=== PATIENT | female | born 1945 | race African-American/Black ===

== ENCOUNTER 2018-04-25 23:37 | Observation (INO) | payer OTHER ==
[2018-04-26 00:49] VITALS: BMI 22.2
--- NOTE | 2018-04-26 00:54 | PDOC ---
Attending Attestation - Resident Resident Name: Tawny Bateman - ED Attending Attestation I have performed the following: I have examined & evaluated the patient, The case was reviewed & discussed with the resident, I agree w/resident's findings & plan, Exceptions are as noted - HPI HPI: 04/26/18 00:58 Ms silverio is a 72 yo F with a h/o CAD s/p CT and CABG, CVA with no resulting weakness Pt presents to the ER for evaluation of noticable weakness Pt reports that she was in her usual state of health today, was shopping and while in [employer], she felt lightheaded and weak (approximately 6pm) She leaned on her walker and ultimately slid to the ground No LOC, No Amnesia She refused to go to the hospital despite staff requesting that she be taken by ambulance She called a friend to pick her up While at home she was noted to be walking different She appeared more weak to her family members They insisted that she come in to the ER Pt denies chest pain, shortness of breath (she never had this with her CT) Currently, pt feels well 04/26/18 01:23 - Physicial Exam PE: 04/26/18 01:29 GENERAL: The patient is in no acute distress. HEAD: Normal with no signs of trauma. EYES: PERRLA, EOMI ENT: Moist mucous membranes. NECK: Normal range of motion, supple LUNGS: Breath sounds equal, clear to auscultation bilaterally. HEART:Regular rate and rhythm, normal S1 and S2 ABDOMEN: Soft, nontender, normoactive bowel sounds. EXTREMITIES: Normal range of motion, no edema. NEUROLOGICAL: Cranial nerves II through XII grossly intact. Normal speech. No focal neurological deficits. SKIN: Hypertrophic midline sternal scar - Medical Decision Making 04/26/18 01:30 72 yo F presenting to the ER with a complaint of light headedness, presyncope Pt has h/o CVA and CT Will do: Labs EKG CT head No indication for TPA given presentation Will admit 04/26/18 00:53 EKG: NSR rate of 83 bpm, LAD, no st elevation or depression, (+) LVH, t wave inversion v3 - v6, II, III, aVF 04/30/18 15:41 Laboratory Tests 04/26/18 04/26/18 04/26/18 00:49 00:49 00:49 WBC 9.4 Hgb 12.8 Hct 38.0 Plt Count 152 INR 1.10 H BUN 27 H Creatinine 1.8 H Alkaline Phosphatase 105 Troponin I 04/26/18 00:49 WBC Hgb Hct Plt Count INR BUN Creatinine Alkaline Phosphatase Troponin I < 0.02
[2018-04-26 01:10] LABS: BASO % 0.1 % (0-2.0); EOS % 0.4 % (0-4.5); HEMOGLOBIN 12.8 GM/dL (10.7-15.3); LYMPH % 12.8 % (8-40); MCH 29.7 pg (25.7-33.7); MCHC 33.7 g/dl (32.0-36.0); MEAN PLT VOLUME 9.3 fl (7.5-11.1); NEUT % 80.7 % (42.8-82.8); PLATELET COUNT 152 K/MM3 (134-434); RBC 4.31 M/mm3 (3.60-5.2); RDW 15.1 % (11.6-15.6); WHITE BLOOD COUNT 9.4 K/mm3 (4.0-10.0)
[2018-04-26] MEDS ORDERED: SODIUM CHLORIDE 500 ML IV STA (01:19)
[2018-04-26 01:23] LABS: INR 1.1 (0.83-1.09)
[2018-04-26 01:25] LABS: ACTIVATED PTT 26.2 SECONDS (25.2-36.5)
[2018-04-26 01:38] LABS: ALBUMIN 3.6 g/dl (3.4-5.0); ALK PHOS 105 U/L (45-117); ANION GAP 8 MMOL/L (8-16); BILIRUBIN,TOTAL 0.7 mg/dL (0.2-1); BLOOD UREA NITROGEN 27 mg/dL (7-18); CHLORIDE 102 mmol/L (98-107); CO2 27 mmol/L (21-32); CREATININE 1.8 mg/dL (0.55-1.3); GLUCOSE,RANDOM 165 mg/dL (74-106); MAGNESIUM 2.5 mg/dL (1.8-2.4); POTASSIUM 4.4 mmol/L (3.5-5.1); SGOT/AST 27 U/L (15-37); SGPT/ALT 23 U/L (13-61); SODIUM 137 mmol/L (136-145); TOT PROT 7.5 g/dl (6.4-8.2)
[2018-04-26] MEDS ORDERED: ASPIRIN 325 MG ENTERIC COATED TABLET (FP) PO ONE (01:53)
--- NOTE | 2018-04-26 01:58 | PDOC ---
History of Present Illness - General Chief Complaint: Weakness Stated Complaint: NUMBNESS ON THE LFT SIDE Time Seen by Provider: 04/26/18 00:17 History Source: Patient, Family (siblings) Exam Limitations: No Limitations - History of Present Illness Initial Comments: 04/26/18 01:55 Pt is a 72yo F with PMH of HTN, HLD, CVA, NE s/p pacemaker/AICD, CKD? presenting to ED with family for L sided weakness. Siblings state that pt had not been walking normally today and was leaning toward the left side with left arm bent and L leg dragging. Pt states that she has been feeling lightheaded for about one week and when she was sitting at a store today, she slid off her walker. She denies hitting her head or losing consciousness. She is denying dizziness, numbness/tingling, weakness. Endorses unsteady gait and lightheadedness. Denies chest pain, SOB, abdominal pain, n/v/d, urinary symptoms , headache, changes in vision, slurred speech. Per family, pt is at baseline. Does not have a neurologist, is not on AC. PMD: Axel Cards: PMH: see hpi Meds: see med rec Allergies: nkda Social: denies 04/26/18 01:59 Past History - Past Medical History Allergies/Adverse Reactions: Allergies Allergy/AdvReac Type Severity Reaction Status Date / Time No Known Allergies Allergy Verified 04/26/18 00:44 Home Medications: Ambulatory Orders Allopurinol [Zyloprim -] 100 mg PO DAILY 04/26/18 Carvedilol 6.25 mg PO DAILY 04/26/18 Cholecalciferol (Vitamin D3) [Vitamin D3] 5,000 unit PO WEEKLY 04/26/18 Furosemide 40 mg PO DAILY 04/26/18 Solifenacin Succinate [Vesicare -] 10 mg PO DAILY 04/26/18 COPD: No HTN: Yes Hypercholesterolemia: Yes - Suicide/Smoking/Psychosocial Hx Smoking Status: No Smoking History: Never smoked Have you smoked in the past 12 months: No Number of Cigarettes Smoked Daily: 0 Information on smoking cessation initiated: No Hx Alcohol Use: No Drug/Substance Use Hx: No *Physical Exam - Vital Signs Last Vital Signs Temp Pulse Resp BP Pulse Ox 97.8 F 85 19 108/65 100 04/25/18 23:37 04/25/18 23:37 04/25/18 23:37 04/25/18 23:37 04/25/18 23:37 Moderate Sedation - Procedure Monitoring Vital Signs: Procedure Monitoring Vital Signs Temperature 97.8 F 04/25/18 23:37 Pulse Rate 85 04/25/18 23:37 Respiratory Rate 19 04/25/18 23:37 Blood Pressure 108/65 04/25/18 23:37 O2 Sat by Pulse Oximetry (%) 100 04/25/18 23:37 ED Treatment Course - LABORATORY CBC & Chemistry Diagram: 04/26/18 00:49 04/26/18 00:49 - ADDITIONAL ORDERS Additional order review: Laboratory Results 04/26/18 04/26/18 04/26/18 00:49 00:49 00:49 PT with INR 13.00 INR 1.10 H PTT (Actin FS) 26.2 Sodium 137 Potassium 4.4 Chloride 102 Carbon Dioxide 27 Anion Gap 8 BUN 27 H Creatinine 1.8 H Creat Clearance w eGFR 27.50 Random Glucose 165 H Calcium 9.0 Magnesium 2.5 H Total Bilirubin 0.7 AST 27 ALT 23 Alkaline Phosphatase 105 Troponin I < 0.02 Total Protein 7.5 Albumin 3.6 04/26/18 00:49 RBC 4.31 MCV 88.0 MCHC 33.7 RDW 15.1 MPV 9.3 Neutrophils % 80.7 Lymphocytes % 12.8 Monocytes % 6.0 Eosinophils % 0.4 Basophils % 0.1 - RADIOLOGY Radiology Studies Ordered: Category Date Time Status HEAD CT WITHOUT CONTRAST [CT] Stat CT Scan 04/26/18 00:58 Taken - Medications Given in the ED: ED Medications Discontinued Medications Generic Name Dose Route Start Last Admin Trade Name Freq PRN Reason Stop Dose Admin Sodium Chloride 500 mls @ 1,000 mls/hr 04/26/18 01:19 04/26/18 01:50 Normal Saline - IV 04/26/18 01:48 1,000 mls/hr ASDIR STA Administration Medical Decision Making - Medical Decision Making 04/26/18 01:58 Pt is a 72yo F with PMH of HTN, HLD, CVA, NE s/p pacemaker/AICD, CKD? presenting to ED with family for L sided weakness. Siblings state that pt had not been walking normally today and was leaning toward the left side with left arm bent and L leg dragging. Pt states that she has been feeling lightheaded for about one week and when she was sitting at a store today, she slid off her walker. She denies hitting her head or losing consciousness. She is denying numbness/tingling, weakness. Endorses unsteady gait and lightheadedness. Denies chest pain, SOB, abdominal pain, n/v/d, urinary symptoms, headache, changes in vision, slurred speech. Per family, pt is at baseline. Does not have a neurologist, is not on AC. Vitals: wnl PE: benign. NIHSS 0 *DC/Admit/Observation/Transfer Diagnosis at time of Disposition: TIA (transient ischemic attack), Weakness - Discharge Dispostion Condition at time of disposition: Fair Decision to Admit order Date/Time: Decision to Admit Order Category Date Time Status Decision to Admit to Hospital Routine Admission 04/26/18 01:54 Ordered - Referrals Referrals: Anil Reyna [Primary Care Provider] - - Patient Instructions - Post Discharge Activity
[2018-04-26] MEDS ORDERED: ASPIRIN 325 MG TABLET ONE (02:03)
--- NOTE | 2018-04-26 02:46 | PN ---
Teaching Attending Note Name of Resident: Renee Allen ATTENDING PHYSICIAN STATEMENT I saw and evaluated the patient. I reviewed the resident's note and discussed the case with the resident. I agree with the resident's findings and plan as documented. SUBJECTIVE: Patient is a 72 year old woman with PMH of HTN, HLD, CVA, [place] s/p pacemaker/AICD , CKD? presenting to the ER with family for left sided weakness. Siblings state that patient had not been walking normally today and was leaning toward the left side with left arm bent and left leg dragging. Patient states that she has been feeling lightheaded for about one week and when she was sitting at a store today, she slid off her walker. She denies hitting her head or losing consciousness. She is denying dizziness, numbness/tingling, weakness. Has unsteady gait and lightheadedness. Denies chest pain, SOB, abdominal pain, nausea, vomiting, diarrhea, urinary symptoms, headache, changes in vision and slurred speech. Per family she is at baseline. Uses a walker at baseline and walks with a limp. OBJECTIVE: Alert Vital Signs Period Temp Pulse Resp BP Sys/Chandler Pulse Ox Last 24 Hr 97.8 F 85 19 108/65 100 HEENT: No Jaundice, eye redness or discharge, PERRLA, EOMI. Normocephalic, atraumatic. External ears are normal and hearing is grossly intact. No nasal discharge. Neck: Supple, nontender. No palpable adenopathy or thyromegaly. No JVD Chest: Good effort. Clear to auscultation and percussion. Heart: Regular. No S3, rub or murmur Abdomen: Not distended, soft, nontender and no HSM. No rebound or guarding. Normoactive bowel sounds. Ext: Peripheral pulses intact. No leg edema. Skin: Warm and dry. No petechiae, rash or ecchymosis. Neuro: Alert. Oriented x3. CN 2-12 grossly intact. Sensation grossly intact in all four extremities and DTR are symmetric. Slow gait and walks with a limp. Home Medications Medication Instructions Recorded Allopurinol [Zyloprim -] 100 mg PO DAILY 04/26/18 Carvedilol 6.25 mg PO DAILY 04/26/18 Cholecalciferol (Vitamin D3) 5,000 unit PO WEEKLY 04/26/18 [Vitamin D3] Furosemide 40 mg PO DAILY 04/26/18 Solifenacin Succinate [Vesicare -] 10 mg PO DAILY 04/26/18 Abnormal Lab Results 04/26/18 04/26/18 00:49 00:49 INR 1.10 H BUN 27 H Creatinine 1.8 H Random Glucose 165 H Magnesium 2.5 H ASSESSMENT AND PLAN: 1. TIA - Symptoms resolved while in the ER. Head CT scan didnot show any acute abnormality. Findings consistent with a TIA. EKG shows NSR, LVH with diffuse t wave inversion. CXR pending. Will admit to telemetry, rule out ACS, get brain MRI/MRA, speech and swallow evaluation, ECHO, carotid doppler, HbA1c, fasting lipids and optimize statin therapy. Consult PT, neurology, do neurochecks and implement fall precautions. Got 325 mg of Aspirin in the ER. 2. CKD - Will consult nephrology and avoid nephrotoxic agents such as NSAIDS, aminoglycosides, contrast dyes and certain Alternative medicine products. 3. DVT prophylaxis - Heparin 5000u sq tid. 4. Advance directives - Full code
--- NOTE | 2018-04-26 03:36 | HP ---
CHIEF COMPLAINT: L leg weakness/lightheadedness PCP:Dr Wilson HISTORY OF PRESENT ILLNESS: 72 y/o female with PMH of CAD, AL (S/p CABG 2013 at [facility]), PPM/AICD, HTN, previous CVA (2015), HTN, HLD presented to the ED with complaints of left leg weakness and dizziness. Patient states that she had felt dizzy all week but went about her normal schedule- today, she was shopping in [place] when around 6pm she felt that her legs (mainly the left) started to feel weak and felt that she could not hold herself up all the way so she attempted to lean over her walker when someone witnessed her sliding down. patient recalls the whole event- she did not lose consciousness or hit her head. she initially refused to go to the hospital than her sister brought her in. these symptoms are similar to how her previous CVA back in 2014 started with initially feeling weak in her legs, she now has some left sided residual weakness from her stroke - she denies any sick contacts or recent travel. ER course was notable for: (1)vitals and labs wnl (minus hyperglycemia at 165); EKG NSR TWI 2, 3, avf v5- v6 (2)head CT negative (3)given ASA 325 once Recent Travel: denies PAST MEDICAL HISTORY: see above PAST SURGICAL HISTORY: CABG, bunyonectomy Social History: Smoking:denies Alcohol:social alcohol use Drugs: denies lives by herself- very independent; uses walker only when she needs to (since her CVA she has needed it off and on) Family History:sister had a stroke in the past Allergies No Known Allergies Allergy (Verified 04/26/18 00:44) HOME MEDICATIONS: Home Medications Medication Instructions Recorded Allopurinol [Zyloprim -] 100 mg PO DAILY 04/26/18 Carvedilol 6.25 mg PO DAILY 04/26/18 Cholecalciferol (Vitamin D3) 5,000 unit PO WEEKLY 04/26/18 [Vitamin D3] Furosemide 40 mg PO DAILY 04/26/18 Solifenacin Succinate [Vesicare -] 10 mg PO DAILY 04/26/18 REVIEW OF SYSTEMS CONSTITUTIONAL: Absent: fever, chills, diaphoresis, generalized weakness, malaise, loss of appetite, weight change HEENT: Absent: rhinorrhea, nasal congestion, throat pain, throat swelling, difficulty swallowing, mouth swelling, ear pain, eye pain, visual changes CARDIOVASCULAR: Absent: chest pain, syncope, palpitations, irregular heart rate, lightheadedness , peripheral edema RESPIRATORY: Absent: cough, shortness of breath, dyspnea with exertion, orthopnea, wheezing, stridor, hemoptysis GASTROINTESTINAL: Absent: abdominal pain, abdominal distension, nausea, vomiting, diarrhea, constipation, melena, hematochezia GENITOURINARY: Absent: dysuria, frequency, urgency, hesitancy, hematuria, flank pain, genital pain MUSCULOSKELETAL: Absent: myalgia, arthralgia, joint swelling, back pain, neck pain SKIN: Absent: rash, itching, pallor HEMATOLOGIC/IMMUNOLOGIC: Absent: easy bleeding, easy bruising, lymphadenopathy, frequent infections ENDOCRINE: Absent: unexplained weight gain, unexplained weight loss, heat intolerance, cold intolerance NEUROLOGIC: Present:focal weakness Absent: headache, focal weakness or paresthesias, dizziness, unsteady gait, seizure, mental status changes, bladder or bowel incontinence PSYCHIATRIC: Absent: anxiety, depression, suicidal or homicidal ideation, hallucinations. PHYSICAL EXAMINATION Vital Signs - 24 hr 04/25/18 23:37 Temperature 97.8 F Pulse Rate 85 Respiratory 19 Rate Blood Pressure 108/65 O2 Sat by Pulse 100 Oximetry (%) GENERAL: Awake, alert, and fully oriented, in no acute distress. EYES: EOMI; PEERLA; no scleral icterus NECK: no JVD; no lymphadenopathy. LUNGS:CTA B/L; no rales, rhonchi or wheezing HEART: Regular rate and rhythm, normal S1 and S2 without murmur, rub or gallop. ABDOMEN: Soft, nontender, not distended, normoactive bowel sounds, no guarding, no rebound, no masses. No hepatomegaly or splenomegaly. MUSCULOSKELETAL: Normal range of motion at all joints. No bony deformities or tenderness. No CVA tenderness. EXTREMITIES: warm; well-perfused; no clubbing/cyanosis or edema NEUROLOGICAL: Cranial nerves II-XII intact. Normal speech. slight limp with gait on left leg.sensation intact B/L; strength 5/5UE and 5/5 LE- no facial droop or slurred speech PSYCHIATRIC: Cooperative. Good eye contact. Appropriate mood and affect. SKIN: Warm, dry, normal turgor, no rashes or lesions noted, normal capillary refill. Laboratory Results - last 24 hr 04/26/18 04/26/18 04/26/18 00:49 00:49 00:49 WBC 9.4 RBC 4.31 Hgb 12.8 Hct 38.0 MCV 88.0 MCH 29.7 MCHC 33.7 RDW 15.1 Plt Count 152 MPV 9.3 Absolute Neuts (auto) 7.6 Neutrophils % 80.7 Lymphocytes % 12.8 Monocytes % 6.0 Eosinophils % 0.4 Basophils % 0.1 Nucleated RBC % 0 PT with INR 13.00 INR 1.10 H PTT (Actin FS) 26.2 Sodium 137 Potassium 4.4 Chloride 102 Carbon Dioxide 27 Anion Gap 8 BUN 27 H Creatinine 1.8 H Creat Clearance w eGFR 27.50 Random Glucose 165 H Calcium 9.0 Magnesium 2.5 H Total Bilirubin 0.7 AST 27 ALT 23 Alkaline Phosphatase 105 Troponin I Total Protein 7.5 Albumin 3.6 04/26/18 00:49 WBC RBC Hgb Hct MCV MCH MCHC RDW Plt Count MPV Absolute Neuts (auto) Neutrophils % Lymphocytes % Monocytes % Eosinophils % Basophils % Nucleated RBC % PT with INR INR PTT (Actin FS) Sodium Potassium Chloride Carbon Dioxide Anion Gap BUN Creatinine Creat Clearance w eGFR Random Glucose Calcium Magnesium Total Bilirubin AST ALT Alkaline Phosphatase Troponin I < 0.02 Total Protein Albumin ASSESSMENT/PLAN: 72 y/o female with PMH of CAD, AL (s/p CABG), CVA, HTN, HLD, PPM, CKD, who presents to the ED after having left leg weakness and dizziness for one day #Left leg weakness/dizziness etiology unclear possible TIA v. pre-syncope -head CT negative -Brain MRI/MRA pending -echo ordered -carotid dopplers pending -start patient on full dose statin give CAD and CVA history (was not on one) -dr. singletary consulted -tele monitoring -f/u lipid panel -HbA1c pending -may consider cardio consult given patients cardiac history #CKD? 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 -may consider nephro consult -avoid nephrotoxic drugs #CAD -c/w asa 81 daily -added lipitor 80 #HTN c/w coreg 6.25 daily lasix 40 daily F/E/N not on fluids monitor electrolytes sodium controlled diet DVT PPX: heparin sq 5000 Problem List - Problem (1) CVA (cerebral vascular accident) Code(s): I63.9 - CEREBRAL INFARCTION, UNSPECIFIED (2) HTN (hypertension) Code(s): I10 - ESSENTIAL (PRIMARY) HYPERTENSION (3) CAD (coronary artery disease) Code(s): I25.10 - ATHSCL HEART DISEASE OF [place] CORONARY ARTERY W/O ANG PCTRS (4) Pre-syncope Code(s): R55 - SYNCOPE AND COLLAPSE (5) HLD (hyperlipidemia) Code(s): E78.5 - HYPERLIPIDEMIA, UNSPECIFIED Visit type - Emergency Visit Emergency Visit: Yes ED Registration Date: 04/26/18 Care time: The patient presented to the Emergency Department on the above date and was hospitalized for further evaluation of their emergent condition. - New Patient This patient is new to me today: Yes Date on this admission: 04/26/18 - Critical Care Critical Care patient: No
[2018-04-26 03:48] LABS: URINE APPEARANCE CLEAR; URINE BILIRUBIN NEGATIVE (<2.0 mg/dL); URINE COLOR YELLOW; URINE GLUCOSE (UA) NEGATIVE (NEGATIVE); URINE KETONE NEGATIVE (NEGATIVE); URINE LEUK ESTERASE 1+ (NEGATIVE); URINE NITRITE NEGATIVE (NEGATIVE); URINE PROTEIN NEGATIVE (NEGATIVE); URINE UROBILINOGEN NEGATIVE mg/dL (0.2-1.0)
[2018-04-26 04:04] LABS: EPI CELLS RARE /HPF (FEW); URINE HYALINE CAST 8 /lpf; URINE MUCUS RARE
[2018-04-26] MEDS: HEPARIN NA (PORCINE) 5,000 UNITS/ML 1ML VIAL SQ SCH ×3 (06:41→21:34)
[2018-04-26 06:45] LABS: HEMATOCRIT 32.9 % (32.4-45.2); HEMOGLOBIN 11.1 GM/dL (10.7-15.3); MCH 29.5 pg (25.7-33.7); MCHC 33.8 g/dl (32.0-36.0); MEAN CELL VOLUME 87.3 fl (80-96); MEAN PLT VOLUME 9.1 fl (7.5-11.1); PLATELET COUNT 141 K/MM3 (134-434); RBC 3.77 M/mm3 (3.60-5.2); WHITE BLOOD COUNT 7.3 K/mm3 (4.0-10.0)
[2018-04-26 07:07] LABS: ALK PHOS 92 U/L (45-117); ANION GAP 5 MMOL/L (8-16); BILIRUBIN,TOTAL 0.4 mg/dL (0.2-1); BLOOD UREA NITROGEN 25 mg/dL (7-18); CALCIUM 8.2 mg/dL (8.5-10.1); CHLORIDE 105 mmol/L (98-107); CO2 29 mmol/L (21-32); CREATININE 1.7 mg/dL (0.55-1.3); GLUCOSE,RANDOM 114 mg/dL (74-106); MAGNESIUM 2.3 mg/dL (1.8-2.4); PHOSPHOROUS 3.2 mg/dL (2.5-4.9); POTASSIUM 3.9 mmol/L (3.5-5.1); SGOT/AST 17 U/L (15-37); SGPT/ALT 16 U/L (13-61); SODIUM 139 mmol/L (136-145); TOT PROT 6.3 g/dl (6.4-8.2)
[2018-04-26 07:20] LABS: CHOLESTEROL 164 mg/dL (50-200); HDL CHOLESTEROL 34 mg/dL (40-60); TRIGLYCERIDES 114 mg/dL (0-150)
[2018-04-26] MEDS ORDERED: PT OWN MED DRAWER 7, Y5N ONE (08:41)
[2018-04-26] MEDS: CARVEDILOL 6.25 MG TABLET (FP) PO SCH ×2 (09:19→21:34)
[2018-04-26] MEDS: FUROSEMIDE 40 MG TABLET (FP) PO SCH (09:19)
[2018-04-26] MEDS: ASPIRIN 81 MG CHEWABLE TABLETS PO SCH (09:19)
[2018-04-26] MEDS ORDERED: CARVEDILOL 6.25 MG TABLET (FP) PO SCH (10:00)
[2018-04-26] MEDS ORDERED: ERGOCALCIFEROL (VITAMIN D2) 50,000 UNIT CAPSULE (FP) PO SCH (10:00)
--- NOTE | 2018-04-26 14:18 | CON.NEURO ---
Consult Consult Specialty:: neuro Reason for Consultation:: L leg weakness - History of Present Illness History of Present Illness: 72 y/o female with PMH of CAD, [place] (S/p CABG 2013 at [place]), PPM/AICD, HTN, previous CVA (2014), HTN, HLD presented to the ED with complaints of left leg weakness and dizziness. Patient states that she had felt dizzy all week but went about her normal schedule- today, she was shopping in [place] when around 6pm she felt that her legs (mainly the left) started to feel weak and felt that she could not hold herself up all the way so she attempted to lean over her walker when someone witnessed her sliding down. patient recalls the whole event- she did not lose consciousness or hit her head. she initially refused to go to the hospital than her sister brought her in. these symptoms are similar to how her previous CVA back in 2014 started with initially feeling weak in her legs, she now has some left sided residual weakness from her stroke. I saw and examined the pt , Hx as above. She reports transient L LE weakness, h/ o stroke w resolved L HP ; she was told that has R ICA stenosis and plaque in the past however carotid endartherctomy was not performed .She is back to her base line. 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 Cardio/Vascular: Yes: CAD ...: No - Past Surgical History Past Surgical History: Yes: AICD - Alcohol/Substance Use Hx Alcohol Use: No - Smoking History Smoking history: Never smoked Have you smoked in the past 12 months: No Aproximately how many cigarettes per day: 0 Home Medications - Allergies Allergies/Adverse Reactions: Allergies Allergy/AdvReac Type Severity Reaction Status Date / Time No Known Allergies Allergy Verified 04/26/18 00:44 - Home Medications Home Medications: Ambulatory Orders Allopurinol [Zyloprim -] 100 mg PO DAILY 04/26/18 Carvedilol 6.25 mg PO DAILY 04/26/18 Cholecalciferol (Vitamin D3) [Vitamin D3] 5,000 unit PO WEEKLY 04/26/18 Furosemide 40 mg PO DAILY 04/26/18 Solifenacin Succinate [Vesicare -] 10 mg PO DAILY 04/26/18 Review of Systems - Review of Systems Constitutional: reports: No Symptoms (all 14 organd reviewed and -ve beside HPI. ) Physical Exam-Neuro Vital Signs: Vital Signs Temperature 98 F 04/26/18 14:00 Pulse Rate 66 04/26/18 14:00 Respiratory Rate 18 04/26/18 14:00 Blood Pressure 112/63 04/26/18 14:00 O2 Sat by Pulse Oximetry (%) 100 04/26/18 10:00 Constitutional: Yes: Well Nourished, No Distress Neck: Yes: Supple Cardiovascular: Yes: WNL Respiratory: Yes: CTA Bilaterally Musculoskeletal: Yes: WNL Edema: No Psychiatric: Yes: WNL Labs: CBC, BMP 04/26/18 05:30 04/26/18 05:30 INR, PTT INR 1.10 (0.83-1.09) H 04/26/18 00:49 - Neuro Exam Level Of Consciousness: Yes: Alert, Oriented to Person, Oriented to Place, Oriented to Time Eyes: Yes: PERRLA Speech: WNL Cranial Nerves II-XII Intact: Yes Gag: Present DTR's: 1+ Left Bicep, 1+ Right Bicep, 1+ Left Tricep, 1+ Right Tricep, 1+ Left Brachioradialis, 1+ Right Brachioradialis, 1+ Left Achilles, 1+ Right Achilles Response to light touch: Normal Response to pain prick: Normal Coordination: Normal: Finger to Nose, Heel to Royal Motor Strength: 5/5: Left Arm, Right Arm, Left Leg, Right Leg Gait: Normal Imaging - Results Cat Scan: Image Reviewed (CTH wo no acute event) Problem List - Problems (1) CAD (coronary artery disease) Code(s): I25.10 - ATHSCL HEART DISEASE OF [place] CORONARY ARTERY W/O ANG PCTRS (2) CVA (cerebral vascular accident) Code(s): I63.9 - CEREBRAL INFARCTION, UNSPECIFIED (3) Pre-syncope Code(s): R55 - SYNCOPE AND COLLAPSE Assessment/Plan 72 y/o AAF w h/o stroke , CAD s/p CABAG, PPM/ AICD and R ICA stenosis p/w transient L LE weakness and confusion/ presyncopy . Her sym has resolved , no seizure activities , exam non focal ; CTH (-) Hx and exam suggestive of TIA vs stroke vs focal partial seizure . I suggest : Repeat CTH WO in 24 hours CTA head and neck EEG routine neurocheck q 4 hours seizure / fall precautions cardio f/u to exclude cardiac causes Health maintenance per primary team. Thank you for allowing us to participate in the care of this pt. Jacobo Louise MD [phone]
--- NOTE | 2018-04-26 17:56 | PN ---
Progress Note (short form) - Note Progress Note: Chief Complaint: Events noted, notes reviewed, reported sudden onset weakness/ probable near syncope, denies any chest pain or dyspnea History of Present Illness: Seen and examined on telemetry. Full consult dictated - Current Medication List Current Medications: Current Medications Aspirin (Asa -) 81 mg PO DAILY [facility] Last Admin: 04/26/18 09:19 Dose: 81 mg Atorvastatin Calcium (Lipitor -) 80 mg PO [facility] Carvedilol (Coreg -) 6.25 mg PO BID [facility] Last Admin: 04/26/18 09:19 Dose: 6.25 mg Ergocalciferol (Drisdol -) 50,000 unit PO Sa@1000 [facility] Last Admin: 04/26/18 09:19 Dose: 50,000 unit Furosemide (Lasix -) 40 mg PO DAILY [facility] Last Admin: 04/26/18 09:19 Dose: 40 mg Heparin Sodium (Porcine) (Heparin -) 5,000 unit SQ TID [facility] Last Admin: 04/26/18 13:48 Dose: 5,000 unit Review of Systems Cardiovascular: As noted above Respiratory: denies: denies: Cough or Sputum Production Gastrointestinal: denies: Nausea, Vomiting, Diarrhea, Constipation or Abdominal Discomfort Musculoskeletal: No Symptoms Reported Endocrine: No Symptoms Reported - Objective Vital Signs: Last Vital Signs Temp Pulse Resp BP Pulse Ox 98 F 66 18 112/63 100 04/26/18 14:00 04/26/18 14:00 04/26/18 14:00 04/26/18 14:00 04/26/18 10:00 Intake & Output 04/23/18 04/24/18 04/25/18 04/26/18 23:59 23:59 23:59 23:59 Intake Total 840 Balance 840 Weight 138 lb 138 lb Constitutional: No Distress Neck: Supple Negative JVD No Bruit Cardiovascular: S1 S2 Regular Rate Rhythm Respiratory: Clear to A&P Bilaterally Gastrointestinal: Soft Benign Normal Bowel Sounds Ext: No Edema Labs: Troponin, BNP 04/26/18 04/26/18 00:49 05:30 Troponin I < 0.02 < 0.02 CBC, BMP 04/26/18 05:30 04/26/18 05:30 Hepatic Panel Total Bilirubin 0.4 mg/dL (0.2-1) 04/26/18 05:30 AST 17 U/L (15-37) 04/26/18 05:30 ALT 16 U/L (13-61) 04/26/18 05:30 Alkaline Phosphatase 92 U/L (45-117) 04/26/18 05:30 Albumin 3.0 g/dl (3.4-5.0) L 04/26/18 05:30 INR, PTT INR 1.10 (0.83-1.09) H 04/26/18 00:49 Assessment/Plan ASSESSMENT: 1. Sudden onset weakness/near syncope 2. CAD post [place]/CABG angina pectoris 3. Systolic/diastolic LV dysfunction with chronic class I-II NYHA classification LV failure, compensated/euvolemic, post ICD implant/primary prophylaxis 4. HTN 5. Hypercholesterolemia 6. History of CVA 7. Chronic kidney disease PLAN: 1. Continue Coreg 2. Continue Lipitor 3. Ideally should be on ACEI or ARBS (preferably Entresto) once renal function at baseline, unless it is absolutely contraindicated 4. Continue Lasix 5. Continue ASA 6. Patient can be D/C home from the cardiovascular point of view and F/U with [facility] Discussed in detail with patient's family at the bedside Storm Mcqueen MD
--- NOTE | 2018-04-26 18:08 | DS ---
Physical Exam: SUBJECTIVE: Patient seen and examined OBJECTIVE: Patient is feeling better, no new event. PHYSICAL EXAM Vital Signs Temperature 97.4 F L 04/26/18 17:58 Pulse Rate 66 04/26/18 17:58 Respiratory Rate 18 04/26/18 17:58 Blood Pressure 116/69 04/26/18 17:58 O2 Sat by Pulse Oximetry (%) 100 04/26/18 10:00 GENERAL: The patient is awake, alert, and fully oriented, in no acute distress. HEAD: Normal with no signs of trauma. EYES: PERRL, extraocular movements intact, sclera anicteric, conjunctiva clear. ENT: Ears normal, oropharynx clear without exudates, moist mucous membranes. NECK: Trachea midline, full range of motion, supple. LUNGS: Breath sounds equal, clear to auscultation bilaterally, no wheezes, no crackles, no accessory muscle use. HEART: Regular rate and rhythm, S1, S2 without murmur, rub or gallop. ABDOMEN: Soft, nontender, nondistended, normoactive bowel sounds, no guarding, no rebound, no hepatosplenomegaly, no masses. EXTREMITIES: 2+ pulses, warm, well-perfused, no edema. NEUROLOGICAL: Cranial nerves II through XII grossly intact. Normal speech. PSYCH: Normal mood, normal affect. SKIN: Warm, dry, normal turgor, no rashes or lesions noted. LABS CBCD WBC 7.3 K/mm3 (4.0-10.0) 04/26/18 05:30 RBC 3.77 M/mm3 (3.60-5.2) 04/26/18 05:30 Hgb 11.1 GM/dL (10.7-15.3) 04/26/18 05:30 Hct 32.9 % (32.4-45.2) 04/26/18 05:30 MCV 87.3 fl (80-96) 04/26/18 05:30 MCHC 33.8 g/dl (32.0-36.0) 04/26/18 05:30 RDW 15.0 % (11.6-15.6) 04/26/18 05:30 Plt Count 141 K/MM3 (134-434) 04/26/18 05:30 MPV 9.1 fl (7.5-11.1) 04/26/18 05:30 CMP Sodium 139 mmol/L (136-145) 04/26/18 05:30 Potassium 3.9 mmol/L (3.5-5.1) 04/26/18 05:30 Chloride 105 mmol/L (98-107) 04/26/18 05:30 Carbon Dioxide 29 mmol/L (21-32) 04/26/18 05:30 Anion Gap 5 MMOL/L (8-16) L 04/26/18 05:30 BUN 25 mg/dL (7-18) H 04/26/18 05:30 Creatinine 1.7 mg/dL (0.55-1.3) H 04/26/18 05:30 Creat Clearance w eGFR 29.38 (>60) 04/26/18 05:30 Random Glucose 114 mg/dL (74-106) H 04/26/18 05:30 Calcium 8.2 mg/dL (8.5-10.1) L 04/26/18 05:30 Total Bilirubin 0.4 mg/dL (0.2-1) 04/26/18 05:30 AST 17 U/L (15-37) 04/26/18 05:30 ALT 16 U/L (13-61) 04/26/18 05:30 Alkaline Phosphatase 92 U/L (45-117) 04/26/18 05:30 Total Protein 6.3 g/dl (6.4-8.2) L 04/26/18 05:30 Albumin 3.0 g/dl (3.4-5.0) L 04/26/18 05:30 CARDIAC ENZYMES Troponin I < 0.02 ng/ml (0.00-0.05) 04/26/18 05:30 Current Medications Generic Name Dose Route Start Last Admin Trade Name Freq PRN Reason Stop Dose Admin Aspirin 81 mg 04/26/18 10:00 04/26/18 09:19 Asa - PO 81 mg DAILY [facility] Administration Atorvastatin Calcium 80 mg 04/26/18 22:00 Lipitor - PO HS [facility] Carvedilol 6.25 mg 04/26/18 10:00 04/26/18 09:19 Coreg - PO 6.25 mg BID [facility] Administration Ergocalciferol 50,000 unit 04/26/18 10:00 04/26/18 09:19 Drisdol - PO 50,000 unit Sa@1000 [facility] Administration Furosemide 40 mg 04/26/18 10:00 04/26/18 09:19 Lasix - PO 40 mg DAILY [facility] Administration Heparin Sodium (Porcine) 5,000 unit 04/26/18 06:00 04/26/18 13:48 Heparin - SQ 5,000 unit TID [facility] Administration Home Medications Medication Instructions Recorded Allopurinol [Zyloprim -] 100 mg PO DAILY 04/26/18 Aspirin [ASA -] 81 mg PO DAILY tab.chew 04/26/18 Atorvastatin Ca [Lipitor] 80 mg PO HS #30 tablet 04/26/18 Carvedilol 6.25 mg PO DAILY 04/26/18 Cholecalciferol (Vitamin D3) 5,000 unit PO WEEKLY 04/26/18 [Vitamin D3] Furosemide 40 mg PO DAILY 04/26/18 HOSPITAL COURSE: Date of Admission:04/26/18 Date of Discharge: 04/26/18 Patient is a 72yo female with PMHx of CAD, [place] (S/p CABG 2013 at [facility]), PPM/ AICD, HTN, previous CVA (2014), HTN, HLD presented to the ED with complaints of sudden onset weakness and dizziness. # Sudden onset weakness/near syncope likely vasovagal , as per patient she was at [employer] when this happened # Hx of CAD post [place]/CABG continue aspirin , follow with Dr. Howe within a week period. # Systolic/diastolic LV dysfunction with ICD implant/primary prophylaxis continue home meds. As per cardio, patient should be on ACEI or ARBS ( preferably Entresto) once renal function at baseline, unless it is absolutely contraindicated # HTN continue home meds # Hypercholesterolemia given 80mg Lipitor # History of CVA on aspirin and Lipitor # Chronic kidney disease follow with director of quality improvement as an outpatient discussed with cardio, will follow as an outpatient. Minutes to complete discharge: 35 Discharge Summary Reason For Visit: LIGHTHEADEDNESS/TRANSIENT ISCHEMIC ATTACK Current Active Problems CAD (coronary artery disease) (Acute) CVA (cerebral vascular accident) (Acute) HLD (hyperlipidemia) (Acute) HTN (hypertension) (Acute) Pre-syncope (Acute) Condition: Stable - Instructions Diet, Activity, Other Instructions: Please follow up with general scrap worker and neurologist for further work up within a week. Referrals: Anil Reyna [Primary Care Provider] - Storm Mcqueen MD [Staff Physician] - 1 Week Renny Dumont DO [Staff Physician] - 1 Week Disposition: HOME - Home Medications Comprehensive Discharge Medication List: Ambulatory Orders Allopurinol [Zyloprim -] 100 mg PO DAILY 04/26/18 Aspirin [ASA -] 81 mg PO DAILY tab.chew 04/26/18 Atorvastatin Ca [Lipitor] 80 mg PO HS #30 tablet 04/26/18 Carvedilol 6.25 mg PO DAILY 04/26/18 Cholecalciferol (Vitamin D3) [Vitamin D3] 5,000 unit PO WEEKLY 04/26/18 Furosemide 40 mg PO DAILY 04/26/18 This patient is new to me today: Yes Date on this admission: 04/26/18 Emergency Visit: Yes ED Registration Date: 04/26/18 Care time: The patient presented to the Emergency Department on the above date and was hospitalized for further evaluation of their emergent condition. Critical Care patient: No - Discharge Referral Referred to [facility] Med P.C.: No
[2018-04-26] MEDS ORDERED: ATORVASTATIN CA 80 MG TABLET (FP) PO SCH (22:00)
[2018-04-27] MEDS: HEPARIN NA (PORCINE) 5,000 UNITS/ML 1ML VIAL SQ SCH (05:35)
--- NOTE | 2018-04-27 07:47 | PN ---
Progress Note (short form) - Note Progress Note: Chief Complaint: Events noted, notes reviewed, denies any recurrent weakness or dizziness, denies any chest pain or dyspnea History of Present Illness: Seen and examined on telemetry. Events noted, notes reviewed, denies any recurrent weakness or dizziness, denies any chest pain or dyspnea Patient to be D/C home today and F/U with PMD at [facility] - Current Medication List Current Medications: Current Medications Aspirin (Asa -) 81 mg PO DAILY [facility] Last Admin: 04/27/18 09:02 Dose: 81 mg Atorvastatin Calcium (Lipitor -) 80 mg PO HS [facility] Last Admin: 04/26/18 21:34 Dose: 80 mg Carvedilol (Coreg -) 6.25 mg PO BID [facility] Last Admin: 04/27/18 09:02 Dose: 6.25 mg Ergocalciferol (Drisdol -) 50,000 unit PO Sa@1000 [facility] Last Admin: 04/26/18 09:19 Dose: 50,000 unit Furosemide (Lasix -) 40 mg PO DAILY [facility] Last Admin: 04/27/18 09:01 Dose: 40 mg Heparin Sodium (Porcine) (Heparin -) 5,000 unit SQ TID [facility] Last Admin: 04/27/18 05:35 Dose: 5,000 unit Review of Systems Cardiovascular: As noted above Respiratory: denies: denies: Cough or Sputum Production Gastrointestinal: denies: Nausea, Vomiting, Diarrhea, Constipation or Abdominal Discomfort Musculoskeletal: No Symptoms Reported Endocrine: No Symptoms Reported - Objective Vital Signs: Last Vital Signs Temp Pulse Resp BP Pulse Ox 97.7 F 67 18 115/70 100 04/27/18 06:00 04/27/18 06:00 04/27/18 06:00 04/27/18 06:00 04/27/18 02:00 Intake & Output 04/24/18 04/25/18 04/26/18 04/27/18 23:59 23:59 23:59 23:59 Intake Total 840 Balance 840 Weight 138 lb 138 lb Constitutional: No Distress Neck: Supple Negative JVD No Bruit Cardiovascular: S1 S2 Regular Rate Rhythm Respiratory: Clear to A&P Bilaterally Gastrointestinal: Soft Benign Normal Bowel Sounds Ext: No Edema Labs: CBC, BMP 04/26/18 05:30 04/26/18 05:30 Hepatic Panel Total Bilirubin 0.4 mg/dL (0.2-1) 04/26/18 05:30 AST 17 U/L (15-37) 04/26/18 05:30 ALT 16 U/L (13-61) 04/26/18 05:30 Alkaline Phosphatase 92 U/L (45-117) 04/26/18 05:30 Albumin 3.0 g/dl (3.4-5.0) L 04/26/18 05:30 INR, PTT INR 1.10 (0.83-1.09) H 04/26/18 00:49 Assessment/Plan ASSESSMENT: 1. Near syncope 2. CAD post [place]/CABG angina pectoris 3. Systolic/diastolic LV dysfunction with chronic class I-II NYHA classification LV failure, compensated/euvolemic 4. Post ICD implant/primary prophylaxis 5. HTN 6. Hypercholesterolemia 7. History of CVA 8. Chronic kidney disease PLAN: 1. Continue Coreg 2. Continue Lipitor 3. Ideally should be on ACEI or ARBS (preferably Entresto) once renal function at baseline, unless it is absolutely contraindicated, can be done on outpatient bases 4. Continue Lasix 5. Continue ASA 6. As outlined above and in yesterday's note patient can be D/C home from the cardiovascular point of view and F/U with [facility] Storm Mcqueen MD
[2018-04-27] MEDS ORDERED: PT OWN MED DRAWER 7, Y5N ONE (08:41)
[2018-04-27] MEDS: FUROSEMIDE 40 MG TABLET (FP) PO SCH (09:01)
[2018-04-27] MEDS: ASPIRIN 81 MG CHEWABLE TABLETS PO SCH (09:02)
[2018-04-27] MEDS: CARVEDILOL 6.25 MG TABLET (FP) PO SCH (09:02)
[2018-04-27 11:28] VITALS: BP 139/64; PULSE 75; TEMP 98
--- NOTE | 2018-04-27 12:34 | CONS ---
DATE OF CONSULTATION: 04/26/2018 CONSULTATION REQUESTED BY: Hospitalist. CHIEF COMPLAINT: Sudden onset of weakness, cardiovascular evaluation. A 72-year-old female, of descent, with known history of coronary artery disease post myocardial infarction, post coronary artery bypass grafting, angina pectoris, systolic/diastolic left ventricular dysfunction related to ischemic dilated cardiomyopathy with chronic class 1to 2 [place] Heart Association classification left ventricular failure, post ICD implant for primary prophylaxis, hypertensive cardiovascular disease, hypercholesterolemia, history of cerebrovascular disease, and chronic kidney disease, who was in her usual state of health, who presented to [facility] with sudden onset of weakness, without loss of consciousness. Patient did not report any preceding palpitations. Patient did not report any bowel or urinary incontinence. Patient reports dyspnea with mild to moderate physical exertion. Patient denies any chest discomfort. Patient denies any orthopnea, paroxysmal nocturnal dyspnea, or peripheral edema. Patient reports fatigue and tiredness. PAST MEDICAL HISTORY: Coronary artery disease, post myocardial infarction, post coronary artery bypass grafting, angina pectoris, systolic left ventricular dysfunction with chronic class 1 to 2[place] Heart Association classification left ventricular failure, post prophylactic ICD implantation, hypertensive cardiovascular disease, hypercholesterolemia, history of cerebrovascular disease, chronic kidney disease. SOCIAL HISTORY: Nonsmoker. FAMILY HISTORY: Positive coronary artery disease. ALLERGIES: None reported. Medical therapy currently includes aspirin 81 mg once a day, Lipitor 80 mg once a day, Coreg 6.25 mg twice a day, vitamin D 50,000 units once a week, Lasix 40 mg once a day, subcutaneous heparin 500 units 3 times a day. REVIEW OF SYSTEMS: Head and Neck: Denies headache, photophobia, blurring of vision. Respiratory: No cough or sputum production. Cardiovascular: As noted above. Gastrointestinal: Denies nausea, vomiting, diarrhea, abdominal discomfort. Genitourinary: No symptoms reported. PHYSICAL EXAMINATION: Vital Signs: Blood pressure 112/63 mmHg. Pulse rate of 66 beats per minute. Head and Neck: Pupils equal, react to light and accommodation. Extraocular muscles are intact. Anicteric sclerae. Negative JVD. No bruit appreciated. Chest: Clear to auscultation and percussion. Cardiovascular: S1, S2 regular. No murmur, clicks or gallops. Abdomen: Soft, benign. Normoactive bowel sound. Extremities: Negative edema. Intact distal pulses. No calf tenderness. Chest x-ray was noted Troponin less than 0.02. CBC revealed white cell count 7.3, hemoglobin 11.1, platelet count 141. Basic metabolic profile revealed a sodium 139, potassium 3.9, BUN 25, creatinine 1.7, glucose 114. ASSESSMENT: 1. Sudden-onset weakness, near syncope. No loss of consciousness. 2. Coronary artery disease, post myocardial infarction, post coronary artery bypass grafting, angina pectoris, stable. 3. Systolic/diastolic left ventricular dysfunction, with chronic class 1 to 2 [place] Heart Association classification left ventricular failure/compensated/ euvolemic. 4. Post prophylactic implantable cardioverter-defibrillator implantation. 5. Hypertensive cardiovascular disease. 6. Hypercholesterolemia. 7. History of cerebrovascular disease with no significant residual deficit. 8. Chronic kidney disease. RECOMMENDATION: 1. Continuation of Coreg. 2. Ideally, patient should be on TYSON inhibitor or angiotensin receptor blockers , preferably Entresto once renal function at baseline, unless it is absolutely contraindicated. 3. Continuation of Lipitor therapy. 4. Continuation of Lasix therapy. 5. Continuation of aspirin therapy. Patient can be discharged home, from the cardiovascular point of view, and further evaluation to be performed on outpatient basis. Thank you for the kind referral. Stef [id number] MTDD
--- NOTE | 2018-04-29 13:53 | EKG ---
Test Reason : Blood Pressure : / mmHG Vent. Rate : 063 BPM Atrial Rate : 063 BPM P-R Int : 186 ms QRS Dur : 096 ms QT Int : 456 ms P-R-T Axes : 067 -31 -51 degrees QTc Int : 466 ms NORMAL SINUS RHYTHM LEFT AXIS DEVIATION MODERATE VOLTAGE CRITERIA FOR LVH, MAY BE NORMAL VARIANT T WAVE ABNORMALITY, CONSIDER INFEROLATERAL ISCHEMIA ABNORMAL ECG WHEN COMPARED WITH ECG OF 26-APR-2018 01:06, INVERTED T WAVES HAVE REPLACED NONSPECIFIC T WAVE ABNORMALITY IN INFERIOR LEADS T WAVE INVERSION LESS EVIDENT IN LATERAL LEADS Confirmed by MD Geovany, Wilrfid ([id number]) on 04/29/2018 1:52:50 PM Referred By: Lety GIBSON Confirmed By:Wilfrid Armenta MD
--- NOTE | 2018-04-29 13:55 | EKG ---
Test Reason : Blood Pressure : / mmHG Vent. Rate : 083 BPM Atrial Rate : 083 BPM P-R Int : 166 ms QRS Dur : 088 ms QT Int : 392 ms P-R-T Axes : 063 -32 090 degrees QTc Int : 460 ms NORMAL SINUS RHYTHM LEFT AXIS DEVIATION VOLTAGE CRITERIA FOR LEFT VENTRICULAR HYPERTROPHY T WAVE ABNORMALITY, CONSIDER ANTEROLATERAL ISCHEMIA ABNORMAL ECG NO PREVIOUS ECGS AVAILABLE Confirmed by MD Geovany, Wilfrid ([id number]) on 04/29/2018 1:55:28 PM Referred By: Confirmed By:Wilfrid Armenta MD
== END 2018-04-27 11:28 | disposition home or self-care (01) ==
LOC: JER 23:37 → JERBED 04-26 01:54 → INTOOBSV 04-26 01:54 → J4S 04-26 04:44
PROVIDERS: ADMIT Internal Medicine; ATTEND Internal Medicine
PROC: 3E0337Z Introduction of Electrolytic and Water Balance Substance into Peripheral Vein, Percutaneous Approach (ICD-10-PCS; principal; 2018-04-26)
PROC: 3E013GC Introduction of Other Therapeutic Substance into Subcutaneous Tissue, Percutaneous Approach (ICD-10-PCS; 2018-04-26)
DX: G45.9 Transient cerebral ischemic attack, unspecified (principal); R53.1 Weakness; I50.1 Left ventricular failure, unspecified; I11.0 Hypertensive heart disease with heart failure; E78.5 Hyperlipidemia, unspecified; I25.10 Atherosclerotic heart disease of native coronary artery without angina pectoris; I25.2 Old myocardial infarction; I12.9 Hypertensive chronic kidney disease with stage 1 through stage 4 chronic kidney disease, or unspecified chronic kidney disease; N18.9 Chronic kidney disease, unspecified; R55 Syncope and collapse; Z86.73 Personal history of transient ischemic attack (TIA), and cerebral infarction without residual deficits; Z95.1 Presence of aortocoronary bypass graft; Z95.810 Presence of automatic (implantable) cardiac defibrillator
CPT/HCPCS: 36415; 70450-TC; 71045-TC-FY; 80053; 80061; 81003; 81015; 83036; 83721; 83735; 84100; 84484; 85025; 85027; 85610; 85730; 93005; 93010; 93880-TC; 96372; 99285-25; G0378; J1644; J7030

== ENCOUNTER 2018-05-02 11:26 | Observation (INO) | payer OTHER ==
[2018-05-02] MEDS: SODIUM CHLORIDE 1,000 ML IV SCH (12:40)
[2018-05-02 13:20] LABS: ALBUMIN 3.9 g/dl (3.4-5.0); ALK PHOS 107 U/L (45-117); ANION GAP 9 MMOL/L (8-16); BILIRUBIN,TOTAL 0.9 mg/dL (0.2-1); BLOOD UREA NITROGEN 22 mg/dL (7-18); CALCIUM 9.2 mg/dL (8.5-10.1); CHLORIDE 103 mmol/L (98-107); CHOLESTEROL 209 mg/dL (50-200); CO2 26 mmol/L (21-32); CREATININE 1.5 mg/dL (0.55-1.3); GLUCOSE,RANDOM 99 mg/dL (74-106); HDL CHOLESTEROL 47 mg/dL (40-60); POTASSIUM 4.3 mmol/L (3.5-5.1); SGOT/AST 59 U/L (15-37); SGPT/ALT 51 U/L (13-61); SODIUM 137 mmol/L (136-145); TRIGLYCERIDES 99 mg/dL (0-150)
--- NOTE | 2018-05-02 13:35 | PDOC ---
History of Present Illness - General Chief Complaint: CVA/TIA Stated Complaint: POSSIBLE STROKE Time Seen by Provider: 05/02/18 12:02 - History of Present Illness Initial Comments: 05/02/18 13:37 72 F with h/o HTN, HLD, CVA, [place] s/p pacemaker/AICD, CKD, recent admission for CVA/TIA, presenting to ED with syncope x2. Pt states that she was in the bathroom this morning when she fell over. Pt denies losing consciousness at this time. This episode was not witnessed. Denies any CP/SOB/palpitations. While in ED waiting room, pt was witnessed to have an episode of unresponsiveness lasting approx 2 minutes according to family. Pt had subsequent return to baseline immediately. No seizure like activity was observed. Pt has absolutely no recollection of this event and denies fainting. Past History - Past Medical History Allergies/Adverse Reactions: Allergies Allergy/AdvReac Type Severity Reaction Status Date / Time No Known Allergies Allergy Verified 05/02/18 11:32 Home Medications: Ambulatory Orders Allopurinol [Zyloprim -] 100 mg PO DAILY 04/26/18 Aspirin [ASA -] 81 mg PO DAILY tab.chew 04/26/18 Atorvastatin Ca [Lipitor] 80 mg PO HS #30 tablet 04/26/18 Carvedilol 6.25 mg PO DAILY 04/26/18 Cholecalciferol (Vitamin D3) [Vitamin D3] 5,000 unit PO WEEKLY 04/26/18 Furosemide 40 mg PO DAILY 04/26/18 Cardiac Disorders: Yes ([place]) CVA: Yes COPD: No HTN: Yes Hypercholesterolemia: Yes - Immunization History Immunization Up to Date: Yes - Suicide/Smoking/Psychosocial Hx Smoking Status: No Smoking History: Never smoked Have you smoked in the past 12 months: No Number of Cigarettes Smoked Daily: 0 Information on smoking cessation initiated: No Hx Alcohol Use: No Drug/Substance Use Hx: No Substance Use Type: None Review of Systems - Review of Systems Comments:: 05/02/18 13:43 GENERAL/CONSTITUTIONAL: No fever or chills. No weakness. HEAD, EYES, EARS, NOSE AND THROAT: No change in vision. No ear pain or discharge. No sore throat. CARDIOVASCULAR: + syncope, No chest pain, no shortness of breath RESPIRATORY: No cough, wheezing, or hemoptysis. GASTROINTESTINAL: No nausea, vomiting, diarrhea or constipation. GENITOURINARY: No dysuria, frequency, or change in urination. MUSCULOSKELETAL: No joint or muscle swelling or pain. No neck or back pain. SKIN: No rash NEUROLOGIC: No vertigo, no change in strength/sensation. ENDOCRINE: No increased thirst. No abnormal weight change. HEMATOLOGIC/LYMPHATIC: No anemia, easy bleeding, or history of blood clots. ALLERGIC/IMMUNOLOGIC: No hives or skin allergy. *Physical Exam - Vital Signs Last Vital Signs Temp Pulse Resp BP Pulse Ox 97.8 F 80 16 134/82 100 05/02/18 11:33 05/02/18 11:33 05/02/18 11:33 05/02/18 11:33 05/02/18 12:39 - Physical Exam Comments: 05/02/18 13:44 GENERAL: Awake, alert, and fully oriented, in no acute distress. HEAD: No signs of trauma EYES: PERRLA, EOMI, sclera anicteric, conjunctiva clear ENT: Auricles normal inspection, hearing grossly normal, nares patent, oropharynx clear without exudates. Moist mucosa NECK: Nontender, no stepoffs, Normal ROM, supple, no lymphadenopathy, JVD, or masses LUNGS: Breath sounds equal, clear to auscultation bilaterally. No wheezes, and no crackles HEART: Regular rate and rhythm, normal S1 and S2, no murmurs, rubs or gallops ABDOMEN: Soft, nontender, normoactive bowel sounds. No guarding, no rebound. No masses EXTREMITIES: Normal range of motion, no edema. No clubbing or cyanosis. No cords, erythema, or tenderness NEUROLOGICAL: Cranial nerves II through XII intact. 5/5 strength and sensation in all extremities, Normal speech, normal gait, normal cerebellar function SKIN: Warm, Dry, normal turgor, no rashes or lesions noted. Moderate Sedation - Procedure Monitoring Vital Signs: Procedure Monitoring Vital Signs Temperature 97.8 F 05/02/18 11:33 Pulse Rate 80 05/02/18 11:33 Respiratory Rate 16 05/02/18 11:33 Blood Pressure 134/82 05/02/18 11:33 O2 Sat by Pulse Oximetry (%) 100 05/02/18 12:39 Heart Score/ECG Review - ECG Impressions Comment:: 05/02/18 13:47 NSR, no ARIES/STDs, TWI in V3-V6 and I, left axis deviation, rate 73 ED Treatment Course - LABORATORY CBC & Chemistry Diagram: 05/02/18 04:25 05/02/18 12:38 - ADDITIONAL ORDERS Additional order review: Laboratory Results 05/02/18 12:38 Sodium 137 Potassium 4.3 Chloride 103 Carbon Dioxide 26 Anion Gap 9 BUN 22 H Creatinine 1.5 H Creat Clearance w eGFR 33.94 Random Glucose 99 Calcium 9.2 Total Bilirubin 0.9 AST 59 H ALT 51 Alkaline Phosphatase 107 Creatine Kinase 101 Troponin I < 0.02 Total Protein 8.0 Albumin 3.9 Triglycerides 99 Cholesterol 209 H Total LDL Cholesterol 140 H HDL Cholesterol 47 - RADIOLOGY Radiology Studies Ordered: Category Date Time Status HEAD CT (STROKE) [CT] Stat CT Scan 05/02/18 12:28 Completed CHEST X-RAY PORTABLE* [RAD] Stat Radiology 05/02/18 12:28 Completed Medical Decision Making - Medical Decision Making 05/02/18 13:48 72 F with syncopal episode in ED waiting room. Initially presented for fall this morning, but suspect this was a syncopal episode as well. EKG with no evidence of arrhythmia. Pt was recently admitted for CVA/TIA. No new stroke symptoms today. - Labs - CT head - Tele monitoring 05/02/18 16:[address] head negative Pt admitted to hospitalist *DC/Admit/Observation/Transfer Diagnosis at time of Disposition: Syncope - Discharge Dispostion Decision to Admit order: Yes - Referrals Referrals: ON STAFF,NOT [Primary Care Provider] - - Patient Instructions - Post Discharge Activity - Attestations Physician Attestion: 05/02/18 16:10 I, Dr. Yunier Alcocer MD, attest that this document has been prepared under my direction and personally reviewed by me in its entirety. I further attest, that it accurately reflects all work, treatment, procedures and medical decision -making performed by me.
[2018-05-02 13:38] LABS: INR 1.08 (0.83-1.09); PROTHROMBIN TIME (PATIENT) 12.8 SEC (9.7-13.0)
[2018-05-02 13:38] LABS: BASO % 0.4 % (0-2.0); EOS % 1.1 % (0-4.5); HEMOGLOBIN 13.2 GM/dL (10.7-15.3); LYMPH % 20.7 % (8-40); MCH 29.5 pg (25.7-33.7); MCHC 33.8 g/dl (32.0-36.0); MEAN CELL VOLUME 87.4 fl (80-96); MEAN PLT VOLUME 8.6 fl (7.5-11.1); MONO % 10.3 % (3.8-10.2); NEUT % 67.5 % (42.8-82.8); PLATELET COUNT 187 K/MM3 (134-434); RBC 4.47 M/mm3 (3.60-5.2); RDW 15.1 % (11.6-15.6); WHITE BLOOD COUNT 7.2 K/mm3 (4.0-10.0)
--- NOTE | 2018-05-02 16:54 | HP ---
CHIEF COMPLAINT: PCP: HISTORY OF PRESENT ILLNESS: ER course was notable for: (1) (2) (3) Recent Travel: PAST MEDICAL HISTORY: PAST SURGICAL HISTORY: Social History: Smoking: Alcohol: Drugs: Family History: Allergies No Known Allergies Allergy (Verified 05/02/18 11:32) HOME MEDICATIONS: Home Medications Medication Instructions Recorded Allopurinol [Zyloprim -] 100 mg PO DAILY 04/26/18 Aspirin [ASA -] 81 mg PO DAILY tab.chew 04/26/18 Atorvastatin Ca [Lipitor] 80 mg PO HS #30 tablet 04/26/18 Carvedilol 6.25 mg PO DAILY 04/26/18 Cholecalciferol (Vitamin D3) 5,000 unit PO WEEKLY 04/26/18 [Vitamin D3] Furosemide 40 mg PO DAILY 04/26/18 REVIEW OF SYSTEMS CONSTITUTIONAL: Absent: fever, chills, diaphoresis, generalized weakness, malaise, loss of appetite, weight change HEENT: Absent: rhinorrhea, nasal congestion, throat pain, throat swelling, difficulty swallowing, mouth swelling, ear pain, eye pain, visual changes CARDIOVASCULAR: Absent: chest pain, syncope, palpitations, irregular heart rate, lightheadedness , peripheral edema RESPIRATORY: Absent: cough, shortness of breath, dyspnea with exertion, orthopnea, wheezing, stridor, hemoptysis GASTROINTESTINAL: Absent: abdominal pain, abdominal distension, nausea, vomiting, diarrhea, constipation, melena, hematochezia GENITOURINARY: Absent: dysuria, frequency, urgency, hesitancy, hematuria, flank pain, genital pain MUSCULOSKELETAL: Absent: myalgia, arthralgia, joint swelling, back pain, neck pain SKIN: Absent: rash, itching, pallor HEMATOLOGIC/IMMUNOLOGIC: Absent: easy bleeding, easy bruising, lymphadenopathy, frequent infections ENDOCRINE: Absent: unexplained weight gain, unexplained weight loss, heat intolerance, cold intolerance NEUROLOGIC: Absent: headache, focal weakness or paresthesias, dizziness, unsteady gait, seizure, mental status changes, bladder or bowel incontinence PSYCHIATRIC: Absent: anxiety, depression, suicidal or homicidal ideation, hallucinations. PHYSICAL EXAMINATION Vital Signs - 24 hr 05/02/18 05/02/18 05/02/18 11:33 12:39 16:27 Temperature 97.8 F 98.2 F Pulse Rate 80 Pulse Rate [ 74 Apical] Respiratory 16 17 Rate Blood Pressure 134/82 Blood Pressure 115/67 [Left Arm] O2 Sat by Pulse 97 100 99 Oximetry (%) GENERAL: Awake, alert, and fully oriented, in no acute distress. HEAD: Normal with no signs of trauma. EYES: Pupils equal, round and reactive to light, extraocular movements intact, sclera anicteric, conjunctiva clear. No lid lag. EARS, NOSE, THROAT: Ears normal, nares patent, oropharynx clear without exudates. Moist mucous membranes. NECK: Normal range of motion, supple without lymphadenopathy, JVD, or masses. LUNGS: Breath sounds equal, clear to auscultation bilaterally. No wheezes, and no crackles. No accessory muscle use. HEART: Regular rate and rhythm, normal S1 and S2 without murmur, rub or gallop. ABDOMEN: Soft, nontender, not distended, normoactive bowel sounds, no guarding, no rebound, no masses. No hepatomegaly or splenomegaly. MUSCULOSKELETAL: Normal range of motion at all joints. No bony deformities or tenderness. No CVA tenderness. UPPER EXTREMITIES: 2+ pulses, warm, well-perfused. No cyanosis. No clubbing. No peripheral edema. LOWER EXTREMITIES: 2+ pulses, warm, well-perfused. No calf tenderness. No peripheral edema. NEUROLOGICAL: Cranial nerves II-XII intact. Normal speech. Normal gait. PSYCHIATRIC: Cooperative. Good eye contact. Appropriate mood and affect. SKIN: Warm, dry, normal turgor, no rashes or lesions noted, normal capillary refill. Laboratory Results 05/02/18 05/02/18 05/02/18 04:25 12:38 12:54 WBC 7.2 RBC 4.47 Hgb 13.2 Hct 39.0 D MCV 87.4 MCH 29.5 MCHC 33.8 RDW 15.1 Plt Count 187 D MPV 8.6 Absolute Neuts (auto) 4.8 Neutrophils % 67.5 Lymphocytes % 20.7 D Monocytes % 10.3 H Eosinophils % 1.1 D Basophils % 0.4 D Nucleated RBC % 0 PT with INR 12.80 INR 1.08 Sodium 137 Potassium 4.3 Chloride 103 Carbon Dioxide 26 Anion Gap 9 BUN 22 H Creatinine 1.5 H Creat Clearance w eGFR 33.94 Random Glucose 99 Calcium 9.2 Total Bilirubin 0.9 AST 59 H ALT 51 Alkaline Phosphatase 107 Creatine Kinase 101 Troponin I < 0.02 Total Protein 8.0 Albumin 3.9 Triglycerides 99 Cholesterol 209 H Total LDL Cholesterol 140 H HDL Cholesterol 47 Blood Type Antibody Screen 05/02/18 05/02/18 12:54 14:30 WBC RBC Hgb Hct MCV MCH MCHC RDW Plt Count MPV Absolute Neuts (auto) Neutrophils % Lymphocytes % Monocytes % Eosinophils % Basophils % Nucleated RBC % PT with INR INR Sodium Potassium Chloride Carbon Dioxide Anion Gap BUN Creatinine Creat Clearance w eGFR Random Glucose Calcium Total Bilirubin AST ALT Alkaline Phosphatase Creatine Kinase Troponin I Total Protein Albumin Triglycerides Cholesterol Total LDL Cholesterol HDL Cholesterol Blood Type A NEGATIVE A NEGATIVE Antibody Screen Negative ASSESSMENT/PLAN: ? Syncopal event vs. unresponsiveness vs. seizure-like activity HTN HLD CKD Hx of CVA --Head CT negative for acute changes and no hypodense areas seen indicative of CVA from prior visit --Consult neurology due to suspicion of possible focal seizure --Will need to interrogate pacemaker ([employer]) to r/o arrhythmia causing unresponsiveness --Orthostatics ordered --Continue home medications: Coreg 6.25mg qdaily Lasix 40mg qdaily Lipitor 80mg HS ASA 81mg qdaily Allopurinol 100mg qDaily FEN: Fluids: Can bolus as needed pending orthostatics Electrolyte abnormalities: None Nutrition: Renal diet PPX: DVT - Heparin SQ TID GI - Not indicated Dispo: Telemetry observation for cardiac monitoring Case discussed with Dr. Timmy Lopez, DO - IM PGY-2
--- NOTE | 2018-05-02 17:43 | PN ---
Teaching Attending Note Name of Resident: Benjamin Lopez ATTENDING PHYSICIAN STATEMENT I saw and evaluated the patient. I reviewed the resident's note and discussed the case with the resident. I agree with the resident's findings and plan as documented. pt is a poor historian and info is per chart and family SUBJECTIVE:72 yo F wtih PMH HTN, dyslipidemia, CVA, OR s/p PPM, CVA/TIA presented after unwitnessed syncopal episode at home. while in the ER pt had witnessed episode lasting about 2 mins according to family with no seizure like activity. was not confused after the event. was just discharged from the hospital on 04/27/18 with similar episodes. was monitored on telemetry and was seen by neuro and cardio. all testing was negative and no medication changes were made. MRI brain not done due to PPM. denies CP, SOB, fever, chills, N/V/C/ D OBJECTIVE: Last Vital Signs Temp Pulse Resp BP Pulse Ox 98.2 F 74 17 115/67 99 05/02/18 16:27 05/02/18 16:27 05/02/18 16:27 05/02/18 16:27 05/02/18 16:27 General NAD CV S1 S2 RRR Lungs CTA B/L no wheezing/rales/rhonchi Abdomen soft NT/ND Neuro CN II-XII grossly intact. strength and sensation equal in all 4 extremities ASSESSMENT AND PLAN: 72 yo F wtih PMH HTN, CKD, dyslipidemia, CVA, OR s/p PPM, CVA/TIA presented after unwitnessed syncopal episode 1. Syncopal episode- tele observation. initial Head CT is negative. there was 2 done on recent admission also negative and carotid doppler were also negative. will check orthostatics, have PPM interrogated to r/o arrythmia. consider EEG, although no post-ictal confusion. consult neuro. 2. CKD- at baseline 3. HTN- controlled. cont home medications 4. dyslipidemia- statin 5. CVA- asa 6. DVT ppx- hep sq 7. spoke with family present at bedside. all questions answered. verbalized understanding and agreement
[2018-05-03] MEDS ORDERED: CARVEDILOL 3.125 MG TABLET (FP) ONE (01:19)
[2018-05-03] MEDS ORDERED: ATORVASTATIN CA 10 MG TABLET (FP) ONE (01:19)
[2018-05-03] MEDS ORDERED: HEPARIN NA (PORCINE) 5,000 UNITS/ML 1ML VIAL ONE (01:20)
[2018-05-03] MEDS: HEPARIN NA (PORCINE) 5,000 UNITS/ML 1ML VIAL SQ SCH ×4 (01:25→22:06)
[2018-05-03] MEDS: CARVEDILOL 6.25 MG TABLET (FP) PO SCH ×3 (01:25→22:06)
[2018-05-03] MEDS: ATORVASTATIN CA 80 MG TABLET (FP) PO SCH ×2 (01:25→22:06)
[2018-05-03 07:31] VITALS: BMI 21.7
--- NOTE | 2018-05-03 09:52 | EKG ---
Test Reason : Blood Pressure : / mmHG Vent. Rate : 078 BPM Atrial Rate : 078 BPM P-R Int : 150 ms QRS Dur : 084 ms QT Int : 416 ms P-R-T Axes : 060 -20 200 degrees QTc Int : 474 ms NORMAL SINUS RHYTHM WITH SINUS ARRHYTHMIA MODERATE VOLTAGE CRITERIA FOR LVH, MAY BE NORMAL VARIANT T WAVE ABNORMALITY, CONSIDER INFEROLATERAL ISCHEMIA PROLONGED QT ABNORMAL ECG WHEN COMPARED WITH ECG OF 26-APR-2018 11:13, T WAVE INVERSION MORE EVIDENT IN LATERAL LEADS Confirmed by BEA STEWART MD ([id number]) on 05/03/2018 9:52:30 AM Referred By: Confirmed By:BEA STEWART MD
[2018-05-03] MEDS: ASPIRIN 81 MG CHEWABLE TABLETS PO SCH (09:59)
[2018-05-03] MEDS: ALLOPURINOL 100 MG TABLET (FP) PO SCH (09:59)
[2018-05-03] MEDS: SODIUM CHLORIDE 1,000 ML IV SCH ×2 (10:00→10:30)
[2018-05-03] MEDS ORDERED: CARVEDILOL 6.25 MG TABLET (FP) PO SCH (10:00)
[2018-05-03] MEDS ORDERED: FUROSEMIDE 40 MG TABLET (FP) PO SCH (10:00)
--- NOTE | 2018-05-03 10:05 | PN ---
Teaching Attending Note Name of Resident: Isaiah No ATTENDING PHYSICIAN STATEMENT I saw and evaluated the patient. I reviewed the resident's note and discussed the case with the resident. I agree with the resident's findings and plan as documented. SUBJECTIVE: No fever or chills. feels a little better . has no BEST or weakness, or numbness. she reports being light headed x 1 week. reports becoming more light headed walking in the mall yesterday after being shopping all day. she went down on the floor but dd not loose consciousness. she continues to take her lasix but poor po intake due to busy family schedule OBJECTIVE: NAD, dry MM CV: RRR, no MRG Lungs: CTAB Ext: no edema or erythema. neuro: EOMi, round equal pupils, reactive to light. no facial droop. tongue at mid line Strength 5/5 in upper and lower extremities proximally and distally , sensation to light touch NL. 2+ knee jerk and biceps b/l ASSESSMENT AND PLAN: 72 y/o lady with h/o D CHF, [place], s/p CABG, s/p ICD, ZCVA, CKD, and HTN who presented with near syncope. 1- Near syncope: Due to orthostatic hypotension ( + orthostatic VD, light headed , poor po hydration while on lasix, and dry MM). I do not suspect TIA, stroke, or other cardiac etiologies. - stop lasix - start IVF - ICd interrogation - Non urgent Echo - Normal neuro exam. 2- H/o D CHF: volume depleted now - hold lasix - cont coreg 3- HTN: cont coreg 4- H/o CVA: cont statin and ASA 5- CKD: Cr at base line dvt Px dispo :possible home tomorrow
[2018-05-03 10:24] LABS: PH,URINE 5.5 (5.0-8.0); URINE APPEARANCE Clear; URINE BILIRUBIN Negative (<2.0 mg/dL); URINE COLOR Yellow; URINE GLUCOSE (UA) Negative (NEGATIVE); URINE KETONE Negative (NEGATIVE); URINE LEUK ESTERASE TRACE (NEGATIVE); URINE NITRITE Negative (NEGATIVE); URINE PROTEIN Negative (NEGATIVE); URINE UROBILINOGEN 0.2 mg/dL (0.2-1.0)
--- NOTE | 2018-05-03 11:42 | PN ---
Physical Exam: SUBJECTIVE: Patient seen and examined at bedside no acute events overnight patient is no longer having dizziness ; she denies any CP.SOB/N/V fevers or chills OBJECTIVE: Vital Signs Period Temp Pulse Resp BP Sys/Chandler Pulse Ox Last 24 Hr 97.6 F-98.5 F 69-88 17-19 114-127/48-77 97-100 GENERAL: The patient is awake, alert, and fully oriented, in no acute distress. EYES:PEERLA; EOMI no scleral icterus NECK: no JVD; no lymphadenopathy LUNGS:CTA B/L; no rales, rhonchi or wheezing HEART: Regular rate and rhythm, S1, S2 without murmur, rub or gallop. ABDOMEN: Soft, nontender, nondistended, normoactive bowel sounds, no guarding, no rebound, no hepatosplenomegaly, no masses. EXTREMITIES: 2+ pulses, warm, well-perfused, no edema. NEUROLOGICAL: Cranial nerves II through XII grossly intact. Normal speech, gait not observed. strength 5/5 B/L UE and LE sensation intact PSYCH: Normal mood, normal affect. SKIN: Warm, dry, normal turgor, no rashes or lesions noted Laboratory Results - last 24 hr 05/02/18 05/02/18 05/02/18 04:25 12:38 12:54 WBC 7.2 RBC 4.47 Hgb 13.2 Hct 39.0 D MCV 87.4 MCH 29.5 MCHC 33.8 RDW 15.1 Plt Count 187 D MPV 8.6 Absolute Neuts (auto) 4.8 Neutrophils % 67.5 Lymphocytes % 20.7 D Monocytes % 10.3 H Eosinophils % 1.1 D Basophils % 0.4 D Nucleated RBC % 0 PT with INR 12.80 INR 1.08 Sodium 137 Potassium 4.3 Chloride 103 Carbon Dioxide 26 Anion Gap 9 BUN 22 H Creatinine 1.5 H Creat Clearance w eGFR 33.94 Random Glucose 99 Calcium 9.2 Total Bilirubin 0.9 AST 59 H ALT 51 Alkaline Phosphatase 107 Creatine Kinase 101 Troponin I < 0.02 Total Protein 8.0 Albumin 3.9 Triglycerides 99 Cholesterol 209 H Total LDL Cholesterol 140 H HDL Cholesterol 47 Urine Color Urine Appearance Urine pH Ur Specific [place] Urine Protein Urine Glucose (UA) Urine Ketones Urine Blood Urine Nitrite Urine Bilirubin Urine Urobilinogen Ur Leukocyte Esterase Blood Type Antibody Screen 05/02/18 05/02/18 05/03/18 12:54 14:30 07:30 WBC RBC Hgb Hct MCV MCH MCHC RDW Plt Count MPV Absolute Neuts (auto) Neutrophils % Lymphocytes % Monocytes % Eosinophils % Basophils % Nucleated RBC % PT with INR INR Sodium Potassium Chloride Carbon Dioxide Anion Gap BUN Creatinine Creat Clearance w eGFR Random Glucose Calcium Total Bilirubin AST ALT Alkaline Phosphatase Creatine Kinase Troponin I Total Protein Albumin Triglycerides Cholesterol Total LDL Cholesterol HDL Cholesterol Urine Color Yellow Urine Appearance Clear Urine pH 5.5 Ur Specific [place] 1.015 Urine Protein Negative Urine Glucose (UA) Negative Urine Ketones Negative Urine Blood Negative Urine Nitrite Negative Urine Bilirubin Negative Urine Urobilinogen 0.2 Ur Leukocyte Esterase Trace Blood Type A NEGATIVE A NEGATIVE Antibody Screen Negative Active Medications Generic Name Dose Route Start Last Admin Trade Name Freq PRN Reason Stop Dose Admin Allopurinol 100 mg 05/03/18 10:00 05/03/18 09:59 Zyloprim - PO 100 mg DAILY JONI Administration Aspirin 81 mg 05/03/18 10:00 05/03/18 09:59 Asa - PO 81 mg DAILY JONI Administration Atorvastatin Calcium 80 mg 05/02/18 22:00 05/03/18 01:25 Lipitor - PO 80 mg HS JONI Administration Carvedilol 6.25 mg 05/02/18 22:00 05/03/18 09:59 Coreg - PO 6.25 mg BID JONI Administration Heparin Sodium (Porcine) 5,000 unit 05/02/18 22:00 05/03/18 06:45 Heparin - SQ 5,000 unit TID JONI Administration Sodium Chloride 1,000 mls @ 75 mls/hr 05/03/18 10:20 Normal Saline - IV ASDIR [facility] ASSESSMENT/PLAN: 72 y/o female with PMH of CAD, [place] (s/p CABG), CVA, HTN, HLD, PPM, CKD, who presents to the ED after having dizziness for over one week in addition to a syncopal episode in the ER #dizziness/syncope -head CT negative -likely 2/2 dehydration -patient is orthostatic positive -possible pacemaker interrogation -dr. singletary consulted -tele monitoring -NS @75mls/hr #CKD patients Cr 1.5; which is baseline -avoid nephrotoxic drugs #CAD -c/w asa 81 daily -added lipitor 80 #HTN c/w coreg 6.25 daily d/c lasix given patients dehydration and positive orthostatics F/E/N NS @75mls/hr monitor electrolytes sodium controlled diet Problem List - Problems (1) Syncope Code(s): R55 - SYNCOPE AND COLLAPSE (2) CAD (coronary artery disease) Code(s): I25.10 - ATHSCL HEART DISEASE OF [place] CORONARY ARTERY W/O ANG PCTRS (3) CVA (cerebral vascular accident) Code(s): I63.9 - CEREBRAL INFARCTION, UNSPECIFIED (4) HLD (hyperlipidemia) Code(s): E78.5 - HYPERLIPIDEMIA, UNSPECIFIED (5) HTN (hypertension) Code(s): I10 - ESSENTIAL (PRIMARY) HYPERTENSION Visit type - Emergency Visit Emergency Visit: Yes ED Registration Date: 05/02/18 Care time: The patient presented to the Emergency Department on the above date and was hospitalized for further evaluation of their emergent condition. - New Patient This patient is new to me today: Yes Date on this admission: 05/03/18 - Critical Care Critical Care patient: No
--- NOTE | 2018-05-03 12:15 | CON.NEURO ---
Consult Consult Specialty:: NEUROLOGY Referred by:: Dr. Herbert Reason for Consultation:: Syncope - History of Present Illness Chief Complaint: Witnessed episodes of unresonsiveness History of Present Illness: 72 F with h/o HTN, HLD, CVA, [place] s/p pacemaker/AICD, CKD, recent admission for CVA/TIA, presenting to ED with syncope x2. Pt states that she was in the bathroom this morning when she fell over. Pt denies losing consciousness at this time. This episode was not witnessed. Denies any CP/SOB/palpitations. While in ED waiting room, pt was witnessed to have an episode of unresponsiveness lasting approx 2 minutes according to family. Pt had subsequent return to baseline immediately. No seizure like activity was observed. Pt has absolutely no recollection of this event and denies fainting. "I don't know why everybody insists that I fainted." She is apparently unaware of having been briefly unresponsive. - History Source History Provided By: Patient, Medical Record Limitations to Obtaining History: Clinical Condition - Past Medical History [place] [employer]: Yes: CVA Cardio/Vascular: Yes: CAD ...: No - Past Surgical History Past Surgical History: Yes: AICD - Alcohol/Substance Use Hx Alcohol Use: No - Smoking History Smoking history: Never smoked Have you smoked in the past 12 months: No Aproximately how many cigarettes per day: 0 Home Medications - Allergies Allergies/Adverse Reactions: Allergies Allergy/AdvReac Type Severity Reaction Status Date / Time No Known Allergies Allergy Verified 05/02/18 11:32 - Home Medications Home Medications: Ambulatory Orders Allopurinol [Zyloprim -] 100 mg PO DAILY 04/26/18 Aspirin [ASA -] 81 mg PO DAILY tab.chew 04/26/18 Atorvastatin Ca [Lipitor] 80 mg PO HS #30 tablet 04/26/18 Carvedilol 6.25 mg PO BID 04/26/18 Cholecalciferol (Vitamin D3) [Vitamin D3] 5,000 unit PO WEEKLY 04/26/18 Furosemide 40 mg PO DAILY 04/26/18 Physical Exam-Neuro Vital Signs: Vital Signs Temperature 97.6 F 05/03/18 09:00 Pulse Rate 73 05/03/18 09:00 Respiratory Rate 19 05/03/18 09:00 Blood Pressure 123/69 05/03/18 09:00 O2 Sat by Pulse Oximetry (%) 97 05/03/18 08:00 Constitutional: Yes: Well Nourished, No Distress, Calm Labs: CBC, BMP 05/02/18 04:25 05/02/18 12:38 INR, PTT INR 1.08 (0.83-1.09) 05/02/18 12:54 - Neuro Exam Level Of Consciousness: Yes: Alert, Oriented to Person, Oriented to Place Speech: Slurred Cranial Nerves II-XII Intact: No (left VII nerve palsy, central pattern) DTR's: 2+ Left Bicep, 2+ Right Bicep, 2+ Left Tricep, 2+ Right Tricep, 2+ Left Brachioradialis, 2+ Right Brachioradialis Babinski: Present (left) Imaging - Results Cat Scan: Report Reviewed (ischemia) Problem List - Problems (1) Syncope Code(s): R55 - SYNCOPE AND COLLAPSE (2) CAD (coronary artery disease) Code(s): I25.10 - ATHSCL HEART DISEASE OF [place] CORONARY ARTERY W/O ANG PCTRS (3) CVA (cerebral vascular accident) Code(s): I63.9 - CEREBRAL INFARCTION, UNSPECIFIED (4) HLD (hyperlipidemia) Code(s): E78.5 - HYPERLIPIDEMIA, UNSPECIFIED (5) HTN (hypertension) Code(s): I10 - ESSENTIAL (PRIMARY) HYPERTENSION (6) Pre-syncope Code(s): R55 - SYNCOPE AND COLLAPSE Assessment/Plan Episodes of syncope/unresponsiveness. Unclear if cardiovascular or possible seizures. suggest evaluating cardiovascular etiologies. Get EEG. Reconsult When EEG results available. EEG can also be done as outpatient in our office.
[2018-05-04] MEDS: HEPARIN NA (PORCINE) 5,000 UNITS/ML 1ML VIAL SQ SCH ×3 (05:22→21:38)
[2018-05-04 07:32] LABS: HEMATOCRIT 31.2 % (32.4-45.2); HEMOGLOBIN 10.7 GM/dL (10.7-15.3); MCH 29.6 pg (25.7-33.7); MCHC 34.2 g/dl (32.0-36.0); MEAN CELL VOLUME 86.6 fl (80-96); MEAN PLT VOLUME 8.9 fl (7.5-11.1); PLATELET COUNT 151 K/MM3 (134-434); WHITE BLOOD COUNT 5.6 K/mm3 (4.0-10.0)
[2018-05-04 08:22] LABS: ANION GAP 4 MMOL/L (8-16); BLOOD UREA NITROGEN 28 mg/dL (7-18); CHLORIDE 112 mmol/L (98-107); CO2 22 mmol/L (21-32); CREATININE 1.5 mg/dL (0.55-1.3); GLUCOSE,RANDOM 102 mg/dL (74-106); MAGNESIUM 2.2 mg/dL (1.8-2.4); PHOSPHOROUS 4.1 mg/dL (2.5-4.9); POTASSIUM 3.8 mmol/L (3.5-5.1); SODIUM 138 mmol/L (136-145)
[2018-05-04] MEDS: SODIUM CHLORIDE 1,000 ML IV SCH (10:19)
[2018-05-04] MEDS: ASPIRIN 81 MG CHEWABLE TABLETS PO SCH (10:19)
[2018-05-04] MEDS: ALLOPURINOL 100 MG TABLET (FP) PO SCH (10:19)
[2018-05-04] MEDS: CARVEDILOL 6.25 MG TABLET (FP) PO SCH (10:19)
--- NOTE | 2018-05-04 15:46 | PN ---
Progress Note (short form) - Note Progress Note: Subjective: No fever or chills. No abd pain , no BEST . sister in law reports that yesterday patient was witnessed dragging her L foot while walking. family reports that patient was seen at home with L sided weakness that lasted few min then resolved. also , she reported one time when she was home alone on bed then developed L sided weakness and had to crawl out of bed. in ER this admission, she was witnessed to have stiffening of her body while n chair lasted few seconds Objective: Vital Signs: Last Vital Signs Temp Pulse Resp BP Pulse Ox 98.3 F 72 16 140/77 98 05/04/18 13:15 05/04/18 13:15 05/04/18 13:15 05/04/18 13:15 05/04/18 10:00 Laboratory Results - last 24 hr 05/04/18 05/04/18 06:10 06:10 WBC 5.6 RBC 3.60 Hgb 10.7 Hct 31.2 L D MCV 86.6 MCH 29.6 MCHC 34.2 RDW 15.0 Plt Count 151 MPV 8.9 Sodium 138 Potassium 3.8 Chloride 112 H Carbon Dioxide 22 Anion Gap 4 L BUN 28 H Creatinine 1.5 H Creat Clearance w eGFR 33.94 Random Glucose 102 Calcium 8.0 L Phosphorus 4.1 Magnesium 2.2 Physical Exam: NAD, MMM CV: RRR, no MRG Lungs: CTAB Ext: no edema or erythema. neuro: EOMi, round equal pupils, reactive to light. no facial droop. tongue at mid line Strength 5/5 in upper and lower extremities proximally and distally, sensation to light touch NL. 2+ knee jerk and biceps b/l ASSESSMENT AND PLAN: 72 y/o lady with h/o D CHF, [place], s/p CABG, s/p ICD, ZCVA, CKD, and HTN who presented with near syncope. 1- Near syncope: due to orthostatic hypotension . corrected - ICD was interrogated in ER, but results are missing. to be faxed to us today - DC IVF - tele with questionable brief episode of VTAc VS artifact 2- Recurrent transient L sided weakness ( new history obtained today) : possible recurrent TIAs vs Ricardo's paralysis ( most likely ) . had tonic seizure in ER. - can't get MRI - EEG pending - change asa to plavix - change lipitor to crestor - case was d/w Dr. moreno who advised CTA, but has CKD, can't do it 3- H/o D CHF: - cont to hold lasix - cont coreg ( medslist obtained ) will change to daily and update in Med rec 3- HTN: cont coreg 4- H/o CVA: cont statin and plavix as above 5- CKD: Cr at base line DVT Px HLOC . Visit type - Emergency Visit Emergency Visit: Yes ED Registration Date: 05/02/18 Care time: The patient presented to the Emergency Department on the above date and was hospitalized for further evaluation of their emergent condition. - New Patient This patient is new to me today: No - Critical Care Critical Care patient: No
[2018-05-04] MEDS ORDERED: ROSUVASTATIN CA 20 MG TABLET (FP) PO SCH (22:00)
[2018-05-05] MEDS: HEPARIN NA (PORCINE) 5,000 UNITS/ML 1ML VIAL SQ SCH ×2 (06:08→15:05)
[2018-05-05 07:34] LABS: ANION GAP 6 MMOL/L (8-16); BLOOD UREA NITROGEN 20 mg/dL (7-18); CALCIUM 8.2 mg/dL (8.5-10.1); CHLORIDE 112 mmol/L (98-107); CO2 23 mmol/L (21-32); CREATININE 1.3 mg/dL (0.55-1.3); GLUCOSE,RANDOM 92 mg/dL (74-106); SODIUM 141 mmol/L (136-145)
--- NOTE | 2018-05-05 08:09 | PN ---
Physical Exam: SUBJECTIVE: Patient seen and examined at bedside- no acute events overnight' patient states she feels OK; denies having anymore lightheaded episodes. she states she has not had anymore trouble walking; denies CP/SOB/N/V fevers or chills OBJECTIVE: Vital Signs Period Temp Pulse Resp BP Sys/Chandler Pulse Ox Last 24 Hr 97.5 F-98.3 F 64-72 16-20 122-150/69-82 98-98 GENERAL: The patient is awake, alert, and fully oriented, in no acute distress. EYES: PEERLA; EOMI; no scleral icterus NECK:no JVD; no lymphadenopathy LUNGS: CTA B/L; no rales, rhonchi or wheezing HEART: Regular rate and rhythm, S1, S2 without murmur, rub or gallop. ABDOMEN: Soft, nontender, nondistended, normoactive bowel sounds, no guarding, no rebound, no hepatosplenomegaly, no masses. EXTREMITIES: 2+ pulses, warm, well-perfused, no edema. NEUROLOGICAL: Cranial nerves II through XII grossly intact. Normal speech, strength 5/5 B/L UE and LE 2+ DTRS SKIN: Warm, dry, normal turgor, no rashes or lesions noted Laboratory Results - last 24 hr 05/04/18 05/05/18 06:10 06:15 Sodium 138 141 Potassium 3.8 4.0 Chloride 112 H 112 H Carbon Dioxide 22 23 Anion Gap 4 L 6 L BUN 28 H 20 H Creatinine 1.5 H 1.3 Creat Clearance w eGFR 33.94 40.04 Random Glucose 102 92 Calcium 8.0 L 8.2 L Phosphorus 4.1 Magnesium 2.2 Active Medications Generic Name Dose Route Start Last Admin Trade Name Freq PRN Reason Stop Dose Admin Allopurinol 100 mg 05/03/18 10:00 05/04/18 10:19 Zyloprim - PO 100 mg DAILY [facility] Administration Carvedilol 6.25 mg 05/05/18 10:00 Coreg - PO DAILY [facility] Clopidogrel Bisulfate 75 mg 05/05/18 10:00 Plavix - PO DAILY [facility] Heparin Sodium (Porcine) 5,000 unit 05/02/18 22:00 05/05/18 06:08 Heparin - SQ 5,000 unit TID JONI Administration Rosuvastatin Calcium 40 mg 05/04/18 22:00 05/04/18 21:38 Crestor - PO 40 mg HS JONI Administration ASSESSMENT/PLAN: 72 y/o female with PMH of CAD, [place] (s/p CABG), CVA, HTN, HLD, PPM, CKD, who presents to the ED after having dizziness for over one week in addition to a syncopal episode in the ER #dizziness/syncope patient endorsin transient L sided weakness and foot dragging of L foot -head CT negative -possibly 2/2 dehydration v. recurrent TIAs v. [place] Paralysis -patient is orthostatic positive -apparently pacemaker was interrogated in ED; they are faxing results this AM -dr. singletary consulted ; EEG is ordered -echo pending -tele monitoring -NS @75mls/hr #CKD patients Cr 1.3; which is baseline -avoid nephrotoxic drugs #CAD -switched ASA to plavix 75 daily -changed lipitor to crestor 40 #HTN c/w coreg 6.25 daily d/c lasix given patients dehydration and positive orthostatics F/E/N NS @75mls/hr monitor electrolytes sodium controlled diet Problem List - Problems (1) Syncope Code(s): R55 - SYNCOPE AND COLLAPSE (2) CAD (coronary artery disease) Code(s): I25.10 - ATHSCL HEART DISEASE OF [place] CORONARY ARTERY W/O ANG PCTRS (3) CVA (cerebral vascular accident) Code(s): I63.9 - CEREBRAL INFARCTION, UNSPECIFIED (4) HLD (hyperlipidemia) Code(s): E78.5 - HYPERLIPIDEMIA, UNSPECIFIED (5) HTN (hypertension) Code(s): I10 - ESSENTIAL (PRIMARY) HYPERTENSION Visit type - Emergency Visit Emergency Visit: Yes ED Registration Date: 05/02/18 Care time: The patient presented to the Emergency Department on the above date and was hospitalized for further evaluation of their emergent condition. - New Patient This patient is new to me today: No - Critical Care Critical Care patient: No
--- NOTE | 2018-05-05 08:58 | PN ---
Progress Note (short form) - Note Progress Note: 72 F with h/o HTN, HLD, CVA, [place] s/p pacemaker/AICD, CKD, recent admission for CVA/TIA, presenting to ED with syncope x2. Pt states that she was in the bathroom this morning when she fell over. Pt denies losing consciousness at this time. This episode was not witnessed. Denies any CP/SOB/palpitations. While in ED waiting room, pt was witnessed to have an episode of unresponsiveness lasting approx 2 minutes according to family. Pt had subsequent return to baseline immediately. No seizure like activity was observed. Pt has absolutely no recollection of this event and denies fainting. "I don't know why everybody insists that I fainted." She is apparently unaware of having been briefly unresponsive. FU : no new events of note hx of gout and pin in the left foot which may limit her ambulation no evidence of left sided hemiparesis now CT HD x 2 (-) acute pathology creatinine improved - History Source History Provided By: Patient, Medical Record Limitations to Obtaining History: Clinical Condition - Past Medical History NEURORADIOLOGIST: Yes: CVA Cardio/Vascular: Yes: CAD ...: No - Past Surgical History Past Surgical History: Yes: AICD - Alcohol/Substance Use Hx Alcohol Use: No - Smoking History Smoking history: Never smoked Have you smoked in the past 12 months: No Aproximately how many cigarettes per day: 0 Home Medications - Allergies Allergies/Adverse Reactions: Allergies Allergy/AdvReac Type Severity Reaction Status Date / Time No Known Allergies Allergy Verified 05/02/18 11:32 - Home Medications Home Medications: Ambulatory Orders Allopurinol [Zyloprim -] 100 mg PO DAILY 04/26/18 Aspirin [ASA -] 81 mg PO DAILY tab.chew 04/26/18 Atorvastatin Ca [Lipitor] 80 mg PO HS #30 tablet 04/26/18 Carvedilol 6.25 mg PO BID 04/26/18 Cholecalciferol (Vitamin D3) [Vitamin D3] 5,000 unit PO WEEKLY 04/26/18 Furosemide 40 mg PO DAILY 04/26/18 Physical Exam-Neuro Vital Signs: Constitutional: Yes: Well Nourished, No Distress, Calm Labs: CBC, BMP 05/02/18 04:25 05/02/18 12:38 INR, PTT INR 1.08 (0.83-1.09) 05/02/18 12:54 - Neuro Exam Level Of Consciousness: Yes: Alert, Oriented to Person, Orien Vital Signs Temperature 97.9 F 05/05/18 06:55 Pulse Rate 66 05/05/18 06:55 Respiratory Rate 16 05/05/18 06:55 Blood Pressure 141/71 05/05/18 06:55 O2 Sat by Pulse Oximetry (%) 98 05/05/18 02:[address] Speech: Slurred Cranial Nerves II-XII Intact: No (left VII nerve palsy, central pattern) DTR's: 2+ Left Bicep, 2+ Right Bicep, 2+ Left Tricep, 2+ Right Tricep, 2+ Left Brachioradialis, 2+ Right Brachioradialis Babinski: Present (left) Imaging - Results Cat Scan: Report Reviewed (ischemia) Problem List - Problems (1) Syncope Code(s): R55 - SYNCOPE AND COLLAPSE (2) CAD (coronary artery disease) Code(s): I25.10 - ATHSCL HEART DISEASE OF [place] CORONARY ARTERY W/O ANG PCTRS (3) CVA (cerebral vascular accident) Code(s): I63.9 - CEREBRAL INFARCTION, UNSPECIFIED (4) HLD (hyperlipidemia) Code(s): E78.5 - HYPERLIPIDEMIA, UNSPECIFIED (5) HTN (hypertension) Code(s): I10 - ESSENTIAL (PRIMARY) HYPERTENSION (6) Pre-syncope Code(s): R55 - SYNCOPE AND COLLAPSE Assessment/Plan Episodes of syncope/unresponsiveness. ABNL EKG -- Cardiology following await EEG , though routine EEG will likely have limited yield, and will get 3 day as outpt no AED for now creatinine has improved so if possible would get CTA intracranial vessels DR FERNANDES
[2018-05-05] MEDS ORDERED: PT OWN MED DRAWER 7, Y5N ONE (09:07)
[2018-05-05] MEDS: ALLOPURINOL 100 MG TABLET (FP) PO SCH (09:54)
[2018-05-05] MEDS ORDERED: CLOPIDOGREL BISULFATE 75 MG TABLET (FP) PO SCH (10:00)
[2018-05-05] MEDS ORDERED: CARVEDILOL 6.25 MG TABLET (FP) PO SCH ×2 (10:00→22:00)
--- NOTE | 2018-05-05 12:16 | ECHO ---
Name: MILA TURNER Exam:Adult Echocardiogram Study Date: 05/05/2018 08:58 AM Age: 72 yrs Reason For Study: possible TIA Height: 66 in Weight: 134 lb BSA: 1.7 m2 MMode/2D Measurements & Calculations IVSd: 0.84 cm Ao root diam: 3.4 cm LVIDd: 5.8 cm LA dimension: 4.1 cm LVIDs: 5.0 cm ACS: 1.4 cm LVPWd: 0.91 cm IVSs: 1.2 cm LVPWs: 1.0 cm EDV(Teich): 163.5 ml ESV(Teich): 116.5 ml Doppler Measurements & Calculations MV V2 max: 201.9 cm/sec MV E max oliver: 145.1 cm/sec MV max P.3 mmHg MV A max oliver: 123.8 cm/sec MV V2 mean: 107.9 cm/sec MV E/A: 1.2 MV mean P.7 mmHg MV V2 VTI: 58.3 cm MV P1/2t max oliver: 142.3 cm/sec Ao V2 max: 139.4 cm/sec MV P1/2t: 109.0 msec Ao max P.8 mmHg MVA(P1/2t): 2.0 cm2 MV dec slope: 382.3 cm/sec2 MR max oliver: 370.2 cm/sec TR max oliver: 252.8 cm/sec MR max P.3 mmHg TR max P.6 mmHg PI end-d oliver: 101.8 cm/sec Med Peak E' Oliver: 4.5 cm/sec Med E/e': 32.4 Lat Peak E' Oliver: 3.8 cm/sec Lat E/e': 38.2 Procedure A complete two-dimensional transthoracic echocardiogram was performed (2D, M-mode, Doppler and color flow Doppler). Left Ventricle The left ventricle is mildly dilated. Left ventricular systolic function is severely reduced. Ejectio n Fraction = 30-35%. Diastolic dysfunction, Grade II, consistent with elevated left atrial pressure. Th ere is severe global hypokinesis of the left ventricle. Right Ventricle The right ventricle is normal size. There is a pacemaker lead in the right ventricle. The right ventr icular systolic function is normal. Atria The left atrium is mildly dilated. The right atrium is mildly dilated. Mitral Valve There is a bioprosthetic mitral valve. The prosthetic mitral valve is well-seated. The prosthetic emerita ral valve appears to open well. There is no mitral regurgitation noted. Tricuspid Valve The tricuspid valve is normal in structure and function. There is mild to moderate tricuspid regurgit ation. Pulmonary artery systolic pressure is at least 30 mmHg assuming RA pressure of 3 mmHg. Aortic Valve There is mild to moderate aortic sclerosis.;. Mild aortic regurgitation. Pulmonic Valve The pulmonic valve is not well visualized. Mild pulmonic valvular regurgitation. Great Vessels The aortic root is normal size. Pericardium/Pleura There is no pericardial effusion. Interpretation Summary The left ventricle is mildly dilated. Left ventricular systolic function is severely reduced. There is severe global hypokinesis of the left ventricle. Ejection Fraction = 30-35%. Diastolic dysfunction, Grade II, consistent with elevated left atrial pressure. The right ventricular systolic function is normal. There is a pacemaker lead in the right ventricle. The left atrium is mildly dilated. The right atrium is mildly dilated. There is a bioprosthetic mitral valve. The prosthetic mitral valve is well-seated. The prosthetic mitral valve appears to open well. There is no mitral regurgitation noted. There is mild to moderate tricuspid regurgitation. Pulmonary artery systolic pressure is at least 30 mmHg assuming RA pressure of 3 mmHg There is mild to moderate aortic sclerosis.; Mild aortic regurgitation. Mild pulmonic valvular regurgitation. There is no pericardial effusion. Previous study is not available for comparison Robbi Sandoval MD 05/05/2018 12:16 PM
--- NOTE | 2018-05-05 14:46 | PN ---
Teaching Attending Note Name of Resident: Renee Allen ATTENDING PHYSICIAN STATEMENT I saw and evaluated the patient. I reviewed the resident's note and discussed the case with the resident. I agree with the resident's findings and plan as documented. SUBJECTIVE: No BEST, no fever or chills. No weakness, numbness or tingling. OBJECTIVE: NAD, MMM CV: RRR, no MRG Lungs: CTAB Ext: no edema or erythema. Neuro: EOMi, round equal pupils, reactive to light. no facial droop. tongue at mid line Strength 5/5 in upper and lower extremities proximally and distally, sensation to light touch NL. 2+ knee jerk and biceps b/l ASSESSMENT AND PLAN: 72 y/o lady with h/o D CHF, [place], s/p CABG, s/p ICD, CVA, CKD, and HTN who presented with near syncope. 1- Near syncope: due to orthostatic hypotension. corrected - ICD interrogation:d/w Dr. Sandoval who reviewed report. No abnormal rhythms. f/u with her prepress supervisor Dr. Yadav in [facility] - tele with no events in past 24 hr 2- Recurrent transient L sided weakness : possible recurrent TIAs vs Ricardo's paralysis ( most likely ) . had tonic seizure in ER. - will call her PCP for base line cr. Suspect Cr elevation was due to volume depletion that corrected with IVF - EEG pending read. will likely need out pt 3 day EEG - Cont plavix and Crestor - D/w Dr. Dumont. recs to start Vimpat 50 BID and get 3 day EEG as out pt - Cant Do MRI due to ICD , and can't do CTA due to CKD ( PC called, last Cr in 12/12 was 1.8 ). 3- Systolic heart failure: Echo shows severely reduced EF. - cont to hold Lasix . will need to resume soon , maybe a lower dose - off IVF now - cont coreg but increase to BID dosing - has ICD 4- H/o CVA: cont statin and plavix as above 5- CKD: from PCP office , last ct 1.8. monitor . DVT Px Dc home today
--- NOTE | 2018-05-05 18:10 | CON.CARD ---
Consult Consult Specialty:: Cardiology Referred by:: Hospitalist Reason for Consultation:: Cardiac evaluation - History of Present Illness Chief Complaint: Evaluate echocardiography result and ICD interrogation result. 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: Yes: CVA Cardio/Vascular: Yes: CAD ...: No - Past Surgical History Past Surgical History: Yes: AICD - Alcohol/Substance Use Hx Alcohol Use: No - Smoking History Smoking history: Never smoked Have you smoked in the past 12 months: No Aproximately how many cigarettes per day: 0 Home Medications - Allergies Allergies/Adverse Reactions: Allergies Allergy/AdvReac Type Severity Reaction Status Date / Time No Known Allergies Allergy Verified 05/02/18 11:32 - Home Medications Home Medications: Ambulatory Orders Carvedilol 6.25 mg PO DAILY 04/26/18 Cholecalciferol (Vitamin D3) [Vitamin D3] 5,000 unit PO WEEKLY 04/26/18 Allopurinol [Zyloprim -] 100 mg PO DAILY #1 tab 05/04/18 Furosemide 20 mg PO DAILY #0 tab 05/04/18 Clopidogrel Bisulfate [Plavix -] 75 mg PO DAILY 30 Days #30 tablet 05/05/18 Rosuvastatin [Crestor -] 40 mg PO HS 30 Days #30 tablet 05/05/18 Vital Signs: Vital Signs Temperature 97.7 F 05/05/18 14:00 Pulse Rate 71 05/05/18 14:00 Respiratory Rate 16 05/05/18 14:00 Blood Pressure 131/74 05/05/18 14:00 O2 Sat by Pulse Oximetry (%) 98 05/05/18 10:00 - Other Data Labs, Other Data: CBC, BMP 05/04/18 06:10 05/05/18 06:15 INR, PTT INR 1.08 (0.83-1.09) 05/02/18 12:54 Assessment/Plan 1. Syncope, etiology to be determined 2. CAD history of [place], CABG, angina pectoris 3. 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 Class 1-2 NYHD classification LV failure, euvolemic 5. ICD ([employer]) 6. MVR (bioprosthesis) 7. HTN/HCVD 8. Hypercholesterolemia 9. Cerebrovascular disease 10. CKD PLAN: 1. Continue present medical therapy 2. ICD interrogation report noted to be functioning normally 3. Echocardiography result reviewed and discussed with patient 4. May discharge cardiac standpoint and follow up with [facility] ward assistant[facility] [place] 5. Neuro input to follow Robbi Sandoval MD
[2018-05-05 19:43] VITALS: BP 138/72; PULSE 75; TEMP 97.5
[2018-05-05] MEDS ORDERED: LACOSAMIDE 50 MG TABLET PO SCH (22:00)
== END 2018-05-05 19:47 | disposition home health service (06) ==
LOC: JER 11:26 → JERBED 16:11 → J4S 05-03 04:10
PROVIDERS: ADMIT Internal Medicine; ATTEND Internal Medicine
PROC: 3E0337Z Introduction of Electrolytic and Water Balance Substance into Peripheral Vein, Percutaneous Approach (ICD-10-PCS; principal; 2018-05-02)
PROC: 3E013GC Introduction of Other Therapeutic Substance into Subcutaneous Tissue, Percutaneous Approach (ICD-10-PCS; 2018-05-02)
DX: R55 Syncope and collapse (principal); I12.9 Hypertensive chronic kidney disease with stage 1 through stage 4 chronic kidney disease, or unspecified chronic kidney disease; N18.9 Chronic kidney disease, unspecified; E78.5 Hyperlipidemia, unspecified; I25.2 Old myocardial infarction; I25.10 Atherosclerotic heart disease of native coronary artery without angina pectoris; I69.352 Hemiplegia and hemiparesis following cerebral infarction affecting left dominant side; I42.0 Dilated cardiomyopathy; I50.40 Unspecified combined systolic (congestive) and diastolic (congestive) heart failure; Z95.810 Presence of automatic (implantable) cardiac defibrillator; Z79.82 Long term (current) use of aspirin; Z95.1 Presence of aortocoronary bypass graft
CPT/HCPCS: 36415; 70450-TC; 71045-TC-FY; 80048; 80053; 81003; 82465; 82550; 83718; 83721; 83735; 84100; 84478; 84484; 85025; 85027; 85610; 86850; 86900; 86901; 93005; 93010; 93306-TC; 95816; 96372; 97161-GP; 99285-25; G0378; J1644; J7030

== ENCOUNTER 2023-04-02 21:06 | Observation (INO) | payer OTHER ==
[2023-04-02 21:58] LABS: BASO % 0.6 % (0-2.0); HEMATOCRIT 40.7 % (32.4-45.2); HEMOGLOBIN 13.5 GM/dL (10.7-15.3); LYMPH % 15.8 % (8-40); MCH 29.4 pg (25.7-33.7); MCHC 33.3 g/dl (32.0-36.0); MEAN CELL VOLUME 88.3 fl (80-96); MEAN PLT VOLUME 8.2 fl (7.5-11.1); MONO % 7.3 % (3.8-10.2); NEUT % 75.3 % (42.8-82.8); PLATELET COUNT 221 10^3/uL (134-434); RBC 4.61 M/mm3 (3.60-5.2); RDW 17.8 % (11.6-15.6); WHITE BLOOD COUNT 8.5 K/mm3 (4.0-10.0)
[2023-04-02 22:04] LABS: INR 1.09 (0.83-1.09); PROTHROMBIN TIME (PATIENT) 12.6 SEC (9.7-13.0)
[2023-04-02 22:07] LABS: ACTIVATED PTT 26.7 SECONDS (25.2-36.5)
[2023-04-02 22:18] LABS: POTASSIUM 4.4 mmol/L (3.5-5.1)
[2023-04-02 22:20] LABS: ALBUMIN 4.2 g/dl (3.4-5.0); BLOOD UREA NITROGEN 22.8 mg/dL (7-18); CALCIUM 9.7 mg/dL (8.5-10.1)
[2023-04-02 22:23] LABS: CREATININE 1.6 mg/dL (0.55-1.3)
[2023-04-02 22:25] LABS: BILIRUBIN,TOTAL 0.9 mg/dL (0.2-1); TOT PROT 8.1 g/dl (6.4-8.2)
[2023-04-02 22:28] LABS: N-TERMINAL BNP 3835.8 pg/ml (5-450)
[2023-04-03] MEDS: DEXTROSE 5%-0.45% SALINE 1,000 ML IV SCH (03:12)
[2023-04-03] MEDS ORDERED: EMPAGLIFLOZIN (JARDIANCE) 10 MG TABLET PO SCH (07:00)
[2023-04-03 08:30] LABS: POTASSIUM 3.8 mmol/L (3.5-5.1)
[2023-04-03 08:33] LABS: CALCIUM 8.9 mg/dL (8.5-10.1)
[2023-04-03 08:34] LABS: ALBUMIN 3.5 g/dl (3.4-5.0); BLOOD UREA NITROGEN 18.7 mg/dL (7-18); MAGNESIUM 2.2 mg/dL (1.8-2.4)
[2023-04-03 08:37] LABS: CREATININE 1.2 mg/dL (0.55-1.3); PHOSPHOROUS 3.9 mg/dL (2.5-4.9)
[2023-04-03 08:39] LABS: BILIRUBIN,TOTAL 0.8 mg/dL (0.2-1); TOT PROT 6.5 g/dl (6.4-8.2)
[2023-04-03 08:41] LABS: BASO % 0.6 % (0-2.0); HEMATOCRIT 35.8 % (32.4-45.2); HEMOGLOBIN 11.6 GM/dL (10.7-15.3); MCHC 32.5 g/dl (32.0-36.0); MEAN CELL VOLUME 89.2 fl (80-96); MEAN PLT VOLUME 8.5 fl (7.5-11.1); MONO % 10.5 % (3.8-10.2); NEUT % 61.9 % (42.8-82.8); PLATELET COUNT 159 10^3/uL (134-434); RBC 4.01 M/mm3 (3.60-5.2); RDW 17.5 % (11.6-15.6); WHITE BLOOD COUNT 7.3 K/mm3 (4.0-10.0)
[2023-04-03] MEDS ORDERED: CARVEDILOL 3.125 MG TABLET (FP) ONE ×2 (09:37→20:32)
[2023-04-03] MEDS: CARVEDILOL 3.125 MG TABLET (FP) PO SCH (09:53)
[2023-04-03 17:22] LABS: URINE APPEARANCE CLEAR; URINE BILIRUBIN NEGATIVE (NEGATIVE); URINE COLOR YELLOW; URINE GLUCOSE (UA) 3+ (NEGATIVE); URINE KETONE TRACE (NEGATIVE); URINE LEUK ESTERASE NEGATIVE (NEGATIVE); URINE NITRITE NEGATIVE (NEGATIVE); URINE PROTEIN NEGATIVE (NEGATIVE); URINE UROBILINOGEN 0.2 mg/dL (0.2-1.0)
[2023-04-03 17:40] LABS: BASO % 0.4 % (0-2.0); EOS % 0.6 % (0-4.5); HEMATOCRIT 36.6 % (32.4-45.2); LYMPH % 22.8 % (8-40); MCH 29.1 pg (25.7-33.7); MCHC 32.8 g/dl (32.0-36.0); MEAN CELL VOLUME 88.6 fl (80-96); MEAN PLT VOLUME 8.1 fl (7.5-11.1); MONO % 7.9 % (3.8-10.2); NEUT % 68.3 % (42.8-82.8); PLATELET COUNT 164 10^3/uL (134-434); RBC 4.14 M/mm3 (3.60-5.2); RDW 17.4 % (11.6-15.6); WHITE BLOOD COUNT 7.5 K/mm3 (4.0-10.0)
[2023-04-03] MEDS ORDERED: ROSUVASTATIN CA 20 MG TABLET ONE (20:32)
[2023-04-03] MEDS: ROSUVASTATIN CA 20 MG TABLET PO SCH (21:00)
[2023-04-04 01:06] VITALS: BMI 18.1
[2023-04-04 07:49] LABS: POTASSIUM 3.9 mmol/L (3.5-5.1)
[2023-04-04 07:58] LABS: BILIRUBIN,TOTAL 1.4 mg/dL (0.2-1)
[2023-04-04 07:59] LABS: TOT PROT 6.2 g/dl (6.4-8.2)
[2023-04-04 08:00] LABS: ALBUMIN 3.2 g/dl (3.4-5.0); BLOOD UREA NITROGEN 17.7 mg/dL (7-18); CALCIUM 8.6 mg/dL (8.5-10.1); CREATININE 1.2 mg/dL (0.55-1.3)
[2023-04-04 09:42] VITALS: BP 113/65; PULSE 75; RESP 18; TEMP 98
[2023-04-04] MEDS: PANTOPRAZOLE 40 MG TABLET PO SCH (09:43)
[2023-04-04] MEDS: POLYETHYLENE GLYCOL (HEALTHYLAX) 3350 17 GM PACKET PO SCH (09:43)
[2023-04-04 10:49] LABS: BASO % 0.5 % (0-2.0); HEMOGLOBIN 10.9 GM/dL (10.7-15.3); LYMPH % 28.2 % (8-40); MCH 29.5 pg (25.7-33.7); MCHC 33.2 g/dl (32.0-36.0); MEAN PLT VOLUME 8.7 fl (7.5-11.1); NEUT % 58.3 % (42.8-82.8); PLATELET COUNT 148 10^3/uL (134-434); RDW 17.2 % (11.6-15.6); WHITE BLOOD COUNT 6.3 K/mm3 (4.0-10.0)
== END 2023-04-04 15:06 | disposition home or self-care (01) ==
LOC: JER 21:06 → INTOOBSV 04-03 00:14 → UNDOADMOB 04-03 00:14 → JERBED 04-03 00:14 → J4W 04-03 19:37
PROVIDERS: ADMIT Internal Medicine
DX: K92.2 Gastrointestinal hemorrhage, unspecified (principal); I11.0 Hypertensive heart disease with heart failure; K59.00 Constipation, unspecified; I65.21 Occlusion and stenosis of right carotid artery; I25.10 Atherosclerotic heart disease of native coronary artery without angina pectoris; I25.5 Ischemic cardiomyopathy; E78.5 Hyperlipidemia, unspecified; I50.9 Heart failure, unspecified; N28.9 Disorder of kidney and ureter, unspecified; R01.1 Cardiac murmur, unspecified; I25.2 Old myocardial infarction; Z95.810 Presence of automatic (implantable) cardiac defibrillator; Z95.1 Presence of aortocoronary bypass graft; Z86.73 Personal history of transient ischemic attack (TIA), and cerebral infarction without residual deficits; Z95.4 Presence of other heart-valve replacement
CPT/HCPCS: 36415; 71045-TC-FY; 80053; 81003; 82272; 82728; 83540; 83550; 83605; 83735; 83880; 84100; 84484; 85025; 85610; 85730; 86850; 86900; 86901; 93005; 93010; 99285-25; G0378